=== PATIENT | male | born 1940 | race Caucasian/White ===

== ENCOUNTER 2017-03-03 17:54 | Inpatient (IN) ==
[2017-03-03 22:02] LABS: MANUAL DIFF NEEDED? NO
[2017-03-03 22:20] LABS: URINE CULTURE NEEDED? NO; URINE MICRO REVIEW NEEDED? NO; URINE SOURCE CLEAN CATCH
[2017-03-03 22:26] LABS: BILIRUBIN URINE NEGATIVE (NEGATIVE); BLOOD URINE SMALL (NEGATIVE); COLOR YELLOW; GLUCOSE URINE NEGATIVE (NEGATIVE); LEUKOCYTES URINE NEGATIVE (NEGATIVE); NITRITE URINE NEGATIVE (NEGATIVE); PROTEIN URINE 30 mg/dL (NEGATIVE); SP GRAVITY URINE 1.004; TURBIDITY URINE CLEAR (CLEAR); UROBILINOGEN URINE NORMAL (NORMAL)
[2017-03-03 22:27] LABS: UR EPITHELIAL CELLS <10 /HPF (<10); URINE BACTERIA NEGATIVE /HPF; URINE RBC <10 /HPF (<10); URINE WBC <10 /HPF (<10)
[2017-03-03 22:37] LABS: ALBUMIN 3.5 g/dL (3.5-5.0); CALCIUM 9.4 mg/dL (8.8-10.2); TOTAL BILIRUBIN 0.27 mg/dL (0.20-1.00); TOTAL PROTEIN 7.4 g/dL (6.3-8.3)
[2017-03-03 22:56] LABS: BASO% 0.4 % (0.0-0.8); EOS# 0.08 X1000 (0.0-0.7); EOS% 0.5 % (0.0-10.0); HEMATOCRIT 27.6 % (42.0-52.0); HEMOGLOBIN 9.2 g/dL (14.0-18.0); IMM GRAN# 0.21 X1000 (0.0-0.04); IMM GRAN% 1.4 % (0.0-0.5); LYMPH# 1.12 X1000 (1.2-3.4); LYMPH% 7.6 % (20.5-51.1); MCH 32.2 PG (27-31); MCHC 33.3 g/dL (33-37); MCV 96.5 FL (81-99); MONO# 1.65 X1000 (0.11-0.59); MONO% 11.2 % (1.7-9.3); MPV 11.1 FL (7.4-10.4); NEUT% 78.9 % (42.2-75.2); PLT 239 X1000 (130-400); RBC 2.86 XMIL (4.7-6.1)
--- NOTE | 2017-03-04 00:05 | Diag Imaging Result Document ---
PROCEDURE NAME: CHEST-2 VIEWS - 03/03/2017 PA AND LATERAL RADIOGRAPHS OF THE CHEST: COMPARISON: 09/01/2016. FINDINGS: A tracheostomy tube is in stable position. There is linear opacity at both lung bases that is very similar to the previous study and probably represents linear scarring and/or atelectasis. However, superimposed infiltrates at the lung bases cannot completely be excluded. There is evidence of prior granulomatous disease that is stable. Cardiac silhouette is unremarkable. IMPRESSION: Bibasilar atelectasis and/or scarring. Superimposed infectious infiltrate at the lung bases cannot completely be excluded, however. Followup chest radiograph is recommended.
--- NOTE | 2017-03-04 00:25 | PROVIDER DOCUMENTATION ---
This chart was entered by Riley Louie Scribe, acting as scribe for Alvin Plunkett MD. HPI-General Adult - General Chief Complaint: Fever Stated Complaint: LETHARGIC/BACK PAIN Time Seen by Provider: 03/03/17 19:53 Source: patient Allergies/Adverse Reactions: Patient Allergies Allergy/AdvReac Type Severity Reaction Status Date / Time No Known Allergies Allergy Verified 05/04/16 18:50 Home Medications: Home Medication List Medication Instructions Recorded Confirmed Last Taken Type Fludrocortisone [Florinef] 0.1 mg PO PRN PRN 07/05/13 03/03/17 05/04/16 07:00 History Tamsulosin HCl 0.4 mg PO DAILY 07/05/13 03/03/17 03/03/17 07:00 History Albuterol [Albuterol Neb] 2.5 mg INH Q4H PRN PRN 08/28/16 03/03/17 03/03/17 14: 00 History Amlodipine Besylate 2.5 mg PO DAILY 08/28/16 03/03/17 03/03/17 07:00 History Aspirin EC 81 mg PO DAILY 08/28/16 03/03/17 03/03/17 07:00 History Cholecalciferol (Vitamin D3) 5,000 unit PO DAILY 08/28/16 03/03/17 03/03/17 07: 00 History [Vitamin D3] Insulin Glargine,Hum.rec.anlog 300 unit SQ BID PRN 08/28/16 03/03/17 Unknown History [Toujeo Solostar] Levothyroxine [Synthroid] 75 microgm PO DAILY@07 #30 tablet 09/01/16 03/03/17 07:00 Rx Pantoprazole Sodium [Protonix] 40 mg PEG BID #60 tablet. 09/01/16 03/03/1703/15 07:00 Rx Sennosides/Docusate Sodium 1 each PEG BID #0 tablet 09/01/16 03/03/17 03/03/17 07:00 Rx [Pericolace] Carvedilol [Coreg] 6.25 mg PO 03/03/17 03/03/17 07:00 History Cefepime HCl/Dextrose, Iso-Osm 2 gm IV Q12HR 03/03/17 03/03/17 03/03/17 07:00 History [Cefepime 2 gm Injection] Escitalopram [Lexapro] 10 mg PO DAILY 03/03/17 03/03/17 03/03/17 07:00 History Pantoprazole Sodium [Protonix] 40 mg PO 03/03/17 03/03/17 07:00 History - History of Present Illness -Gen Adult Nature of Presenting Problems: Pt is a 77 yom who presents to ER with CC of generalized weakness and fever. Daughter reports that pt has been complaining of low back pain, generalized weakness, fever, and diarrhea that started last night. PT has hx of a tracheotomy and daughter and grand daughter reports that for the past week, pt' s sputum has become increasingly yellow and has a foul odor to it. Pt has been treated with IV Cephapine for the past 2 months and has 4 days left (total of ~ 10 weeks). Pt also complains of shortness of breath. Location of Pain/Injury: reports: generalized Pain Radiation: reports: no radiation Quality of Pain: reports: none Severity: reports: moderate Onset/Duration: reports: last night Timing: reports: still present Associated Symptoms: reports: back/neck pain, cough, diarrhea, fatigue, fever/ chills, shortness of breath, weakness, trouble walking. denies: anxiety, arm pain, chest pain, constipation, diaphoresis, dizziness, EENT symptoms, genitourinary problems, headaches, heartburn, joint pain, muscle aches, nausea, rash, seizure, pain with inspiration, syncope, vomiting Similar Symptoms Previously?: Yes Recently seen or treated by another doctor?: Yes Review of Systems - Adult - REVIEW OF SYSTEMS - ADULT Constitutional: reports: chills, fever, fatique. denies: night sweats, weight gain, weight loss Eyes: reports: no symptoms reported Ears, Nose, Mouth & Throat: reports: no symptoms reported Cardiovascular: reports: no symptoms reported Respiratory: reports: cough, excessive sputum production, shortness of breath. denies: chronic cough, dyspnea on exertion, hemoptysis, pleurisy, wheezing Gastrointestinal: reports: diarrhea. denies: abdominal pain, hematemesis, constipation, difficulty swallowing, frequent heartburn, nausea, poor appetite, rectal bleeding, vomiting Genitourinary: reports: no symptoms reported Musculoskeletal: reports: back pain, muscle weakness. denies: bone pain, frequent leg cramps, joint pain, joint swelling, muscle aches, neck pain Integumentary: reports: no symptoms reported Neurological: reports: no symptoms reported Psychiatric: reports: no symptoms reported Endocrine: reports: no symptoms reported Hematologic/Lymphatic: reports: no symptoms reported Allergic/Immunologic: reports: no symptoms reported All Other Systems: Reviewed and Negative Past History - Adult - PAST MEDICAL HISTORY-ADULT Review of Records: reports: Nursing Assessment Review, Medications Reviewed Cardiovascular: reports: HTN Gastrointestinal: reports: other (PEG tube) Other Conditions: reports: other cancer (tracheal cancer) - PRIOR SURGERIES/PROCEDURES Surgical/Procedure History: reports: other (PEG tube, tracheotomy ) - IMMUNIZATION STATUS Childhood Immunizations: See Nurse Assessment Flu Vaccine: See Nurse Assessment - FAMILY HISTORY Family History: reviewed, not pertinent Physical Exam-General - PHYSICAL EXAM-ADULT Initial Vital Signs Reviewed: Yes - CONSTITUTIONAL General Appearance: appears well, alert, mild distress, thin. negative: no apparent distress - EYES Eyes: PERRL/EOMI, pink conjunctivae. negative: photophobia, sclera injected, scleral icterus - HEAD, EARS, NOSE, MOUTH & THROAT HENMT: normocephalic/atraumatic, moist mucous membranes, normal ENT inspection, TMs normal, pharynx normal. negative: pharyngeal erythema, tonsillar exudate, TM abnormal - NECK Neck: non-tender, full range of motion, normal inspection, other (tracheotomy; soft tissue of neck hard from radiation tx). negative: supple, C-spine tenderness, limited range of motion, lymphadenopathy - RESPIRATORY Respiratory: chest non-tender, no pleuratic chest pain, no respiratory distress , no accessory muscle use, wheezing. negative: lungs clear, normal breath sounds - CARDIOVASCULAR Cardiovascular: normal peripheral pulses. negative: regular rate, rhythm, no murmur, bradycardia, tachycardia, irregularly irregular - GASTROINTESTINAL (ABDOMEN) Abdominal Exam: normal bowel sounds, non tender, soft, no organomegaly, no pulsatile mass. negative: abnormal bowel sounds, distended, guarding, rigid, rebound, tenderness - MUSCULOSKELETAL Back Exam: normal inspection, no CVA tenderness, no vertebral tenderness. negative: CVA tenderness, decreased range of motion, ecchymosis, muscle spasm, swelling, vertebral tenderness Extremity: normal range of motion, non-tender, normal gait, normal inspection, no pedal edema, no calf tenderness, normal capillary refill. negative: deformity, erythema, inflammation, swelling, tenderness - SKIN Integumentary: normal color, normal turgor, warm/dry. negative: abrasion(s), diaphoresis, ecchymosis, erythema, laceration(s), swelling, tenderness, warm - NEUROLOGIC Neurologic: brick offbearer II-XII nml as tested, grossly normal, no motor/sensory deficits . negative: facial droop, focal weakness, motor weakness, sensory deficit - PSYCHIATRIC Psych/Mental Status: normal thought content, normal thought process, oriented x 3, depressed affect. negative: normal mood/affect Progress - PLAN OF CARE/RESULTS Progress/Plan/Lab Results: Vital Signs - 8 hr 03/03/17 18:09 Pulse Rate 77 Respiratory Rate 18 Blood Pressure 164/58 O2 Sat by Pulse Oximetry 97 Result Diagrams: 03/03/17 21:25 03/03/17 21:25 - XRAY 1 XRAY: Bilateral XRAY Study: Chest Impression: See EMR Report Departure - Departure Time of Disposition Decision: 23:39 DIAGNOSIS: Fever, Endocarditis Disposition: ADMITTED INPATIENT 09 Certified Medical Emergency: Emergent Condition: Stable Referrals and Follow-Ups: Flash Ortega [Primary Care Provider] - - Critical Care Note This patient required my direct & personal management of CC.: No This chart was documented by the indicated scribe, (Riley Louie Scribe) and accurately reflects the services I performed and decisions made by me, Alvin Plunkett MD, as attested by the provider's signature.
[2017-03-04] MEDS: NS 1,000 ML IV SCH ×2 (02:02→17:15)
[2017-03-04 02:34] LABS: INR 0.98; PROTIME 10.3 Seconds (9.2-11.7); PTT 25.3 Seconds (22.0-36.0)
[2017-03-04 05:48] LABS: MANUAL DIFF NEEDED? NO
[2017-03-04 05:51] LABS: BASO% 0.5 % (0.0-0.8); EOS% 0.6 % (0.0-10.0); HEMATOCRIT 28.8 % (42.0-52.0); HEMOGLOBIN 9.8 g/dL (14.0-18.0); IMM GRAN# 0.22 X1000 (0.0-0.04); IMM GRAN% 1.4 % (0.0-0.5); LYMPH# 1.09 X1000 (1.2-3.4); LYMPH% 7.1 % (20.5-51.1); MONO# 2.32 X1000 (0.11-0.59); MPV 10.6 FL (7.4-10.4); NEUT% 75.4 % (42.2-75.2); PLT 238 X1000 (130-400); RBC 2.97 XMIL (4.7-6.1)
[2017-03-04 06:08] LABS: HEMOGLOBIN A1C 5.3 % (4.8-6.0)
[2017-03-04 06:14] LABS: CALCIUM 9.1 mg/dL (8.8-10.2); MAGNESIUM 1.9 mg/dL (1.5-2.7); POTASSIUM 4.7 mmol/L (3.5-5.1)
[2017-03-04] MEDS: HUMALOG SUBQ SCH ×4 (06:23→22:22)
[2017-03-04] MEDS: SYNTHROID PEG SCH (06:23)
[2017-03-04] MEDS: MERREM 1 GM in NS 50 ML IV SCH ×3 (06:28→22:23)
[2017-03-04] MEDS: CUBICIN (FOR INPATIENT USE) 500 MG in NS 100 ML IV SCH (07:50)
--- NOTE | 2017-03-04 08:02 | HISTORY AND PHYSICAL ---
TIME: 0200 hours. PRIMARY CARE PROVIDER: Mani Ortega MD COCOA MILL OPERATOR: Nayeli Ortega MD MUD MIXER OPERATOR: Charles Hoskins MD with [facility]. ONCOLOGIST: A physician in [place], per the patient. CHIEF COMPLAINT: Fever. HISTORY OF PRESENT ILLNESS: Mr. Matt Guerrero is a 77-year-old, male , with a past medical history of recurrent lung cancer and throat cancer. He currently has a tracheostomy. He also has a recent history of being treated for pneumonia. The patient was recently admitted at [facility] and was discharged to [facility] for rehab. The patient reports that he has just returned home approximately 2-3 weeks ago and is still receiving daily cefepime IV infusions for his pneumonia, stating that he has 4 more days of this remaining. He states that he is followed by Dr. Bland for this as well. The patient states for the past 3- 4 days that he has had fever, increased weakness, mid upper back pain, worsening shortness of breath and productive cough with yellow sputum. The patient also reports for approximately 1-2 months now, that he has had diarrhea. He states now that his diarrhea is very watery in consistency, though he denies any hematochezia or melena. He also complains of some dizziness as well. He also reports that he has been feeling very dizzy and weak and has actually fallen due to when he stands up from a sitting position, he becomes very lightheaded. We did do orthostatics in the ER, and the patient did tilt slightly with his blood pressure from sitting, going from 140/79 to 119/56, though his heart rate remained stable. He denies any chest pain, abdominal pain, nausea, vomiting, or dysuria. The patient does report some urinary frequency. He denies any pain, numbness or tingling in extremities. Patient denied any previous known history of pulmonary embolism or DVT. He states that during his last admission at [facility], as well as at rehab at [facility], they did have him on Coumadin. He took his last dose of this approximately 1 week ago but the patient states that he is unsure of why he was placed on this medication. He denied any history of irregular heartbeat, such as atrial fibrillation or atrial flutter. Upon evaluation in the ER, patient was found to have leukocytosis. X-ray did show bibasilar atelectasis or scarring as well as superimposed infectious infiltrate at the lung bases, which could not be completely excluded. Due to these findings, we did order a chest abdomen and pelvis CT, which showed worsening right and new left lung multifocal ground-glass opacities. Radiologist noted this could be a source of atypical infection. There was also some increased mediastinal lymph nodes, which could be reactive. He was also found to be slightly hyponatremic with a sodium of 124. At this time, we will admit the patient for further treatment evaluation of his pneumonia and hyponatremia. REVIEW OF SYSTEMS: A 12-point review of systems was conducted with the patient and all were negative except for pertinent positives mentioned above in the HPI. PAST MEDICAL HISTORY: 1. COPD. 2. Diabetes mellitus type 2. 3. CVA. 4. Hyperlipidemia. 5. Hypertension. 6. Throat cancer. 7. Recurrent lung cancer. 8. Chronic kidney disease, stage 3A. 9. History of gastrointestinal bleeding. 10. Coronary artery disease with cardiac stent placement x1. 11. AAA repair. 12. Abdominal hernias. PAST SURGICAL HISTORY: 1. Cholecystectomy. 2. PEG tube placement. 3. Tracheostomy. 4. AAA repair. 5. Neck surgery. SOCIAL HISTORY: The patient is a former smoker. He denies any past or present alcohol or illicit drug use. FAMILY HISTORY: Positive for diabetes mellitus, and dementia. ALLERGIES: Patient reports no known allergies. HOME MEDICATIONS: 1. Albuterol nebulizer treatments 2.5 mg inhaled q.4 hours p.r.n. for shortness of breath. 2. Amlodipine 2.5 mg p.o. daily. 3. Aspirin 81 mg p.o. daily. 4. Coreg 6.25 mg p.o. daily. 5. Cefepime 2 g IV q.12 hours. 6. Vitamin D3 5000 units p.o. daily. 7. Lexapro 10 mg p.o. daily. 8. Florinef 0.1 mg p.o. p.r.n. for decreased blood pressure. 9. Toujeo SoloSTAR per the patient's sliding scale at home. 10. Levothyroxine 75 mcg p.o. daily. 11. Protonix 40 mg per PEG tube twice a day. 12. Colace 1 per PEG tube b.i.d. 13. Flomax 0.4 mg per PEG tube daily. DIAGNOSTIC DATA: Laboratory results: White blood cell count 14.79, hemoglobin 9.2, hematocrit 27.6, platelet count is 239,000. PT 10.3, INR 0.98. PTT is 25.3. Sodium 124, potassium 5, chloride 86, bicarb 26, BUN 44, creatinine 1.5, estimated GFR is 45, glucose 160 , serum osmolalities 275, calcium 9.4. Liver function tests are within normal limits. CK 108, troponin 0.019. Total protein 7.4, albumin 3.5. Urinalysis was obtained via clean catch , was positive for protein and small amount of blood. It was negative for glucose, ketones, nitrites, leukocytes or bacteria. Urine sodium was 23. EKGs showed normal sinus rhythm with a rate of 83, and a QTc of 418. CT of the chest, abdomen and pelvis without contrast showed worsened right and new left lung multifocal ground-glass opacities. Radiologist did note this could be a source for atypical infection. He did note interval increase in mediastinal lymph nodes which may be reactive. Also noted was moderate right hemidiaphragm elevation. Punctate calcified granulomas within the spleen. An exophytic large left renal cyst. Abdominal aortic aneurysm. Bifurcated limb endograft repair. Percutaneous gastrostomy tube was appropriately positioned. Also noted was a superior right urinary bladder diverticulum. PHYSICAL EXAMINATION: VITAL SIGNS: Temperature 98.1 degrees, pulse rate 87, respiratory rate 22, blood pressure 159/82. Oxygen saturation is 93% per trach collar at 4 L. GENERAL: Mr. Guerrero is a pleasant 77-year-old, male, who was resting in the ER stretcher. He was in no acute distress. He was awake, alert and able to answer all questions appropriately. Due to the patient having tracheostomy, his speech is difficult to understand, though he is able to answer questions and make any commands for his needs via writing with paper and pen. HEENT: Head is atraumatic, normocephalic. Pupils are equal, round, reactive to light and were 3 mm bilaterally and brisk. Sclerae white. No lesions noted. Sub-conjunctivae were slightly pale. Oral mucosa is moist. Oropharynx is clear. NECK: Supple. Trachea is midline. No JVD noted. There were slight carotid bruits noted per auscultation bilaterally, though the patient does have a probable 3/6 systolic murmur noted. This could be related to this. CARDIOVASCULAR: Patient has normal S1, S2. As previously mentioned, he does have a 3/6 systolic murmur noted. No other rubs or gallops present. Heart rate is regular and he has a regular rhythm as well. PULMONARY: Patient has symmetrical chest expansion bilaterally. Lung sounds in bilateral full hadley were coarse upon auscultation. The patient does become dyspneic as well as hypoxic upon exertion, even just walking to the bathroom and back, though upon rest, he does maintain oxygen saturations well, anywhere between 93 and 94 on trach collar at 4 L. ABDOMEN: Soft, nontender, nondistended. Bowel sounds were present in all 4 quadrants. Patient does have a PEG tube present. His his stoma does appear to be in good condition. No erythema or sores noted. EXTREMITIES: No cyanosis, clubbing, or edema noted. Pulse, motor and sensory were intact in all extremities. Pedal pulses were 3+ bilaterally. INTEGUMENTARY: Patient's skin is pink, warm, dry and intact. No lesions or sores noted. NEUROLOGICAL: Patient is alert, oriented to person, place, time, and situation. Cranial nerves 2- 12 are grossly intact. ASSESSMENT AND PLAN: 1. Bilateral multifocal pneumonia. For this, blood cultures as well as sputum culture have been obtained. We have placed the patient, at this time, on IV meropenem 1 g IV q.8 hours as well as daptomycin 500 mg IV q.24 hours. We have placed a consult with Dr. Bland with Infectious Disease and Dr. Riley with Pulmonology will await their evaluation and further recommendations. 2. Leukocytosis. This is likely secondary to the patient's pneumonia. We will continue to rule out any other sources of infection as well. 3. Chronic obstructive pulmonary disease. We have placed a Pulmonology consult. We will continue with DuoNeb treatments scheduled 4 times a day and will continue to monitor his respiratory status closely. 4. History of recurrent lung cancer and throat cancer. The patient currently has a tracheostomy secondary to this. We will continue with aggressive pulmonary toilet as well as we have ordered for the patient to have tracheostomy care per Respiratory and will continue to follow. 5. Hyponatremia. We suspect that this is hypotonic, hypovolemic, hyponatremia. Looking back, the patient has not previously had any issues with hyponatremia. He did report that he has had diarrhea for approximately 1-1/2 to 2 months. This could be secondary to this. We will continue with gentle fluid resuscitation with normal saline at 100 mL/h and we have placed stool studies as well for further evaluation of his diarrhea and we will continue to monitor him closely. 6. Diarrhea. Will continue with treatment as mentioned above with stool studies and continue to follow. 7. Chronic kidney disease stage 3A. At this time, this appears to be stable based on his previous creatinine and glomerular filtration rate. We will closely monitor his renal function, avoid nephrotoxic medications and renally dose medications as necessary. 8. Anemia. The patient has a history of this as well. This appears to be stable also. We will continue to monitor this also. 9. Diabetes mellitus type 2. We have placed the patient on a Lispro sliding scale moderate dose and have ordered a hemoglobin A1c and we will continue to follow. 10. Hypertension. We will continue the patient's Norvasc and continue to monitor. 11. Hypothyroidism. We will continue the patient's levothyroxine and have ordered a TSH and will continue to follow. The patient will be placed on the medical floor with telemetry. He will have vital signs q.4 hours. We will do strict intake and output. We will do q.4 hours neuro checks. We have placed a dietitian consult and have also continued the patient's regular tube feedings with Pulmocare 240 mL every 4 hours as well as he takes 16 ounces of water with every feeding as well every 4 hours. We have also placed an order for an echocardiogram in the morning for further evaluation of his cardiac murmur. Pending diagnostic studies at this time are blood cultures, urine culture, sputum culture, stool studies, repeat troponin, and echocardiogram. Further orders and recommendations pending hospital course, diagnostic studies a physician evaluation. Dictated by SB Herrera for Kahlil Chavez MD cc: Kahlil Chavez MD [facility]
[2017-03-04] MEDS: DUONEB (A & A) INH SCH ×3 (08:29→20:08)
[2017-03-04] MEDS ORDERED: PROTONIX SCH (09:00)
--- NOTE | 2017-03-04 11:37 | Diag Imaging Result Document ---
PROCEDURE NAME: THORAX/ABDOMEN/PELVIS W/O CONT - 03/04/2017 CT CHEST, ABDOMEN, AND PELVIS WITHOUT CONTRAST: COMPARISON: CT abdomen and pelvis dated 08/27/[address] chest dated 2015. FINDINGS: CHEST: There are patchy ground-glass opacities bilaterally, that have worsened on the right and are new on the left. There is stable bibasilar pulmonary fibrosis. There is a 7.7 mm noncalcified nodule in the right lower lobe on image 64 of series 3 that is not identified on the previous study. This certainly may represent an inflammatory nodule. Continued surveillance based on Elisha Society Criteria is recommended. There is a calcified granuloma at the right lung apex. There are patchy calcified pleural plaques seen bilaterally. There is no pleural fluid collection and no pneumothorax. A tracheostomy tube is in place. There are a few calcified mediastinal and hilar lymph nodes indicating prior granulomatous disease. There are several mediastinal lymph nodes that have increased in size during the interval. They are nonspecific but are probably reactive. For reference, there is a lymph node in the aortopulmonary window on image 46 of series 2 that measures 1.4 x 1.1 cm axially (0.7 x 0.5 cm previously). There is stable cardiomegaly. There is stable aortic and coronary artery atherosclerotic calcification. ABDOMEN/PELVIS: There has been a previous cholecystectomy. A gastrostomy tube is in place. There are calcified granulomata in the spleen. There is a left renal cyst. No renal stones or hydronephrosis is appreciated. There is uncomplicated moderate sigmoid colonic diverticulosis. There is no bowel obstruction. There is elevation of the right hemidiaphragm that is stable. There is a small right anterior urinary bladder diverticulum. There is a stable stent graft repaired abdominal aortic aneurysm. The remainder of the solid viscera of the abdomen and pelvis and the remainder of the GI tract is essentially unremarkable. IMPRESSION: 1. Worsened ground-glass opacities in the right lung and new ground-glass opacities on the left. An infectious process cannot be excluded. 2. New 7.7 mm noncalcified nodule in the right lower lobe that certainly may be inflammatory, but continued surveillance is recommended. 3. Worsening mediastinal and hilar lymphadenopathy that is nonspecific but is probably reactive. 4. Uncomplicated diverticulosis coli. 5. No definite acute pathology involving the abdomen or pelvis. 6. Other incidental/nonacute findings detailed above. [facility]
[2017-03-04] MEDS: LEXAPRO PEG SCH (12:30)
[2017-03-04] MEDS: COREG PEG SCH (12:30)
[2017-03-04] MEDS: FLOMAX PEG SCH (12:30)
[2017-03-04] MEDS: VITAMIN D SCH (12:30)
[2017-03-04] MEDS: ASPIRIN SCH (12:30)
[2017-03-04] MEDS: NORVASC PEG SCH (12:57)
--- NOTE | 2017-03-04 14:57 | CONSULTATION ---
DATE OF CONSULTATION: 03/04/2017 DIAGNOSES: 1. Chronic obstructive pulmonary disease. 2. Bilateral pulmonary infiltrates consistent with aspiration or bronchopneumonia. 3. Bilateral pulmonary fibrotic changes consistent with idiopathic pulmonary fibrosis. 4. History of lung cancer with radiation. 5. History of ear, nose, throat carcinoma. 6. Status post tracheostomy secondary to above. 7. Diabetes mellitus. 8. Percutaneous endoscopic gastrostomy tube secondary to above. RECOMMENDATIONS: I agree with the broad-spectrum antibiotics as well as the inhaled beta agonist and supplemental oxygen. Will give him humidity in his trach collar and follow closely along with you. HISTORY: This very pleasant 77-year-old white male has a known history of ENT carcinoma as well as COPD. He has a history of lung cancer and he is status post tracheostomy. His CAT scan showed fibrotic changes consistent with IPF and subsequently he was recently in the hospital with more broad-spectrum antibiotics. He now returns with increasing wheezing, cough, and shortness of breath. He does admit to some aspiration-type symptoms as well as cough. Formerly, he was a smoker of approximately a 60 pack-year history. PAST MEDICAL HISTORY: Positive for COPD as well as previous CVA. He has a history of diabetes mellitus, type 2. He has a history of throat cancer, status post radiation, chronic renal insufficiency, as well as a previous history of peripheral vascular disease, aortic repair, and history of hyperlipidemia. REVIEW OF SYSTEMS: Except for the features mentioned above, negative for weight loss, night sweats, weakness, or anorexia. No ENT symptoms of odynophagia, dysphagia, epistaxis, painful swallowing. No eye symptoms of blindness, blurring, or diplopia. No other cardiac or pulmonary symptoms other than mentioned. No nausea, vomiting, constipation, or diarrhea. No hematuria, polyuria, nocturia, or dysuria. No joint or muscle pain, stiffness, or swelling. No skin rashes, itching, or bruises. No seizures, loss of consciousness, or paralysis. Except for the features mentioned above, all other symptoms on the review of systems are negative. PAST FAMILY MEDICAL HISTORY: Positive for ischemic heart disease in his father, diabetes in his mother. SOCIAL HISTORY: He has a supportive family. Does have a tracheostomy at home. Does not currently drink or smoke. PHYSICAL EXAMINATION: Vital Signs: Blood pressure 184/77 with a pulse of 96, respirations 18, temperature 98.4 degrees. HEENT: Reveals no thyromegaly or adenopathy. Pupils are equal and reactive. Extraocular muscles are intact. Neck: Supple. No bruits. No thyromegaly. No JVD. Chest: Reveals bilaterally equal breath sounds with some prolongation of the expiratory phase, forced expiratory wheezes. There are crackles and rhonchi. There is a tracheostomy tube in place. It has some purulent secretions inside; however, appears to be intact. Cardiac: Reveals a regular rhythm without an appreciable murmur. Abdomen: Soft. Skin: Warm and dry. There is a PEG tube placed in his abdomen. Neurological: He is awake, conversing, and moves all 4. DIAGNOSTIC STUDIES: The chest CT and x-ray show bilateral infiltrates as well as honeycomb scarring peripherally. He has a sodium of 127, potassium 4.7, chloride 87, CO2 of 28, BUN 42, creatinine 1.4, glucose 110. White count is 15,200 with a hemoglobin of 9.8, hematocrit of 28.8, and platelets of 238,000.
--- NOTE | 2017-03-04 16:59 | ECHO REPORT ---
ORDER DATE: 03/04/2017 ECHOCARDIOGRAPHIC MEASUREMENTS: 1. Interventricular septum 1.4 Left ventricular posterior wall 1.4. Diastolic diameter 4.4. Left atrium 4.5. Aorta 4. 2. Aortic valve leaflets were sclerosed, trileaflet. Mitral valve was normal. There is mild mitral annular calcification. There is left atrial enlargement. Tricuspid valve was normal. 3. Normal left ventricular cavity size. Estimated ejection fraction of 55% to 60% however endocardium not well visualized in all views. 4. There is mild mitral regurgitation. Peak velocity across the aortic valve was 2.9 m/sec with a mean gradient of 19 mmHg. There is aortic sclerosis versus mild aortic stenosis, there is mild tricuspid regurgitation. Peak velocity across the tricuspid valve was 2.6 m/sec. Pulmonary artery systolic pressure of 35 mmHg. Technically suboptimal study. 5. There is no pericardial effusion or obvious intracardiac mass or thrombus. cc: Epi Lomeli MD
[2017-03-05] MEDS: DUONEB (A & A) INH SCH ×4 (02:52→21:38)
[2017-03-05] MEDS: NS 1,000 ML IV SCH ×4 (02:52→16:25)
[2017-03-05] MEDS: SYNTHROID PEG SCH ×2 (05:53→08:17)
[2017-03-05] MEDS: MERREM 1 GM in NS 50 ML IV SCH ×4 (05:53→23:08)
[2017-03-05 06:48] LABS: MANUAL DIFF NEEDED? NO
[2017-03-05] MEDS: PRILOSEC ORAL SUSPENSION SCH ×3 (06:48→20:04)
[2017-03-05 06:55] LABS: BASO% 0.5 % (0.0-0.8); EOS# 0.19 X1000 (0.0-0.7); EOS% 1.9 % (0.0-10.0); HEMATOCRIT 26.4 % (42.0-52.0); HEMOGLOBIN 8.5 g/dL (14.0-18.0); IMM GRAN# 0.16 X1000 (0.0-0.04); IMM GRAN% 1.6 % (0.0-0.5); LYMPH# 0.65 X1000 (1.2-3.4); LYMPH% 6.6 % (20.5-51.1); MCH 31.7 PG (27-31); MCHC 32.2 g/dL (33-37); MCV 98.5 FL (81-99); MONO# 1.77 X1000 (0.11-0.59); MONO% 17.9 % (1.7-9.3); MPV 10.7 FL (7.4-10.4); NEUT% 71.5 % (42.2-75.2); PLT 227 X1000 (130-400); RBC 2.68 XMIL (4.7-6.1)
[2017-03-05 07:18] LABS: CALCIUM 8.7 mg/dL (8.8-10.2); POTASSIUM 4.8 mmol/L (3.5-5.1)
[2017-03-05] MEDS: HUMALOG SUBQ SCH ×4 (08:16→23:04)
--- NOTE | 2017-03-05 09:13 | Diag Imaging Result Document ---
PROCEDURE NAME: CHEST-1 VIEW - 03/05/2017 SINGLE FRONTAL RADIOGRAPH OF THE CHEST: COMPARISON: 03/03/2017. FINDINGS: Tracheostomy tube is in stable position. Inspiration is suboptimal and lung volumes are lower than the previous study. There is increasing opacity throughout the left lung and at the right mid and lower lung zone suggesting developing/worsening infiltrate. There is also probably a component of atelectasis at the lung bases. Cardiac silhouette is stable. IMPRESSION: Lower lung volumes and worsening infiltrates bilaterally.
[2017-03-05] MEDS: CUBICIN (FOR INPATIENT USE) 500 MG in NS 100 ML IV SCH (10:35)
[2017-03-05] MEDS: LEXAPRO PEG SCH (10:37)
[2017-03-05] MEDS: COREG PEG SCH (10:37)
[2017-03-05] MEDS: FLOMAX PEG SCH (10:37)
[2017-03-05] MEDS: ASPIRIN SCH (10:37)
[2017-03-05] MEDS: NORVASC PEG SCH (10:37)
[2017-03-05] MEDS: VITAMIN D SCH (10:39)
[2017-03-05] MEDS ORDERED: VANCOMYCIN IV PER PHARMACY MISC SCH (14:00)
--- NOTE | 2017-03-05 16:43 | PROGRESS NOTE ---
DATE: 03/05/2017 SUBJECTIVE: This patient states that he is feeling a little bit better. He still is still having cough and phlegm, I talked to the patient and basically this patient is bed-bound, Pulmonary Department is following this patient and Infectious Disease Department will be consulted tomorrow. OBJECTIVE: Vital Signs: Temperature 98.4 degrees, pulse 84, respiratory rate 18, blood pressure 155/69, O2 saturation 99 on 10% oxygen flow through his trach collar. HEENT: Head normocephalic. No trauma. PERRLA. Neck: Supple, trachea is midline. No JVD. Tracheostomy noted. Chest: Bilateral coarse sounds, generalized, with rhonchi bilaterally. Abdomen: Soft, nontender, nondistended. No hepatosplenomegaly. This patient has a PEG tube that appears to be in a good condition, no erythema. Extremities: No edema. No cyanosis. No clubbing. Neurological: The patient is alert. He is oriented x3. No focal deficits. LABORATORY: WBC 9.8, hemoglobin 8.5, hematocrit 26.4, platelets 227,000. Sodium 130, potassium 4.8, chloride 93, bicarbonate 28, BUN 37, creatinine 1.2, glucose 162, calcium 8.7. ASSESSMENT AND PLAN: 1. Bilateral multifocal pneumonia. Cultures so far have been negative. We will continue with meropenem and vancomycin. Pulmonary Department is following this patient as well and we have placed a consult for Dr. Bland from Infectious Disease for tomorrow. 2. Leukocytosis, likely secondary to this patient's pneumonia. The white blood cell count today is normal. 3. Chronic obstructive pulmonary disease. We will continue with breathing treatment and pulmonary toilet. Pulmonary Department is following this patient. 4. History of recurrent lung cancer and throat cancer. This patient has a tracheostomy secondary to this and also a PEG tube. We will continue to monitor. 5. Hyponatremia. This is getting better. Continue with the same management. 6. Diarrhea. This is getting better. Continue with the same management. 7. Chronic kidney disease stage III. We will monitor. The glomerular filtration rate today 59 and the creatinine is 1.2 point. 8. Type 2 diabetes. Continue with sliding scale. His hemoglobin A1c is 5.3. 9. Hypothyroidism. Continue with levothyroxine. 10. Bilateral pulmonary fibrotic changes consistent with idiopathic pulmonary fibrosis. Aware. PLAN: I will continue with broad spectrum antibiotics as well as breathing treatment, Pulmonary Department is following this patient and we have placed a consult for Infectious Disease Department. Overall, this patient feels a little bit better, but we will continue to monitor. cc: Farooq Lou MD
[2017-03-05] MEDS: LOVENOX SUBQ SCH (16:46)
[2017-03-05] MEDS ORDERED: VANCOMYCIN 1,500 MG in NS 250 ML IV ONE (17:00)
--- NOTE | 2017-03-05 17:54 | CONSULTATION ---
DATE OF CONSULTATION: 03/05/2017 CONCLUSION: The patient is admitted the hospital with bilateral pneumonia. The patient had recently been on prolonged course of Cefepime, so the organism would probably be resistant to cefepime. RECOMMENDATIONS: I agree with treating the patient with meropenem. I have discontinued daptomycin because it is ineffective in treating pulmonary infections. Instead, I have placed the patient on vancomycin. DISCUSSION: The patient has a tracheostomy and was unable to give me a history. The history was taken mainly from a review of the data in the computer. The patient states that in the past 3-4 days, he had fever, increased weakness, mid-upper back pain, worsening shortness of breath and a productive cough with yellow sputum. His laboratory studies show a CBC with a white count of 9880, hemoglobin 8.8, and platelet count 227,000. Creatinine is 1.2. GFR is 59. Blood and urine cultures are pending. Sputum culture has been ordered, but has not been collected yet. CT scan and chest x-ray show bilateral infiltrates. I was unable to obtain a review of systems from the patient, but according to the data in the computer, the patient has been having diarrhea in the past 1-2 months. He is not complaining of any dysuria. He has orthostatic dizziness and weakness. He was not having any chest pain, abdominal pain, nausea or vomiting. He also denied having paresthesias in his extremities. The patient when he went home was on intravenous cefepime. PREVIOUS HOSPITALIZATIONS AND OPERATIONS: He has had a cholecystectomy, placement of a PEG tube, tracheostomy, abdominal aortic aneurysm repair and neck surgery. Patient has also had placement of a stent surgery for abdominal hernias. MEDICAL DISEASES: Positive for COPD, diabetes mellitus, stroke, hyperlipidemia, hypertension, throat cancer, chronic kidney disease, GI bleeding, coronary artery disease with stent placement, aortic aneurysm and hernias. The patient denied having lung cancer. INFECTIOUS DISEASE HISTORY: Positive for pneumonia, negative for UTI. FAMILY HISTORY: Positive for diabetes mellitus and dementia. SOCIAL HISTORY: The patient is disabled. He previously smoked cigarettes. He denies alcohol consumption or any illegal drug use. ALLERGIES: The patient has no known drug allergies. HOME MEDICATIONS: Coreg, tamsulosin, Savana-Colace, Protonix, Synthroid, insulin, Florinef, cholecalciferol, aspirin, amlodipine, albuterol, Lexapro, and the patient was receiving cefepime intravenously. PHYSICAL EXAMINATION: Vital Signs: Temperature is 98.4 degrees, pulse 84, respirations 18, blood pressure 155/69. Patient's weight is listed as 165 pounds. General: This is a chronically ill appearing, elderly male. He is in no acute distress. Head, eyes, ears, nose, and throat: No drainage was noted from the nose or ears. He can hear my spoken words and see near objects. Neck: Tracheostomy is in place. Thorax: Increased AP diameter of the chest. Lungs: There were bilateral rhonchi, but no wheezes. Cardiovascular: Heart rate was regular with a systolic murmur. Abdomen: Soft and nontender. G-tube is in place. Neurologic: Patient is awake. He can move his extremities. There is no tremor. His sensation was intact to touch. I was unable to test all his memory. There was no tremor. Integument: No rash noted. Thank you for the consult. cc: Hima Bland MD
[2017-03-06] MEDS: DUONEB (A & A) INH SCH ×4 (03:38→21:00)
[2017-03-06] MEDS: MERREM 1 GM in NS 50 ML IV SCH ×3 (04:19→22:18)
[2017-03-06] MEDS: NS 1,000 ML IV SCH ×2 (04:21→14:13)
[2017-03-06 06:10] LABS: MANUAL DIFF NEEDED? NO
--- NOTE | 2017-03-06 06:11 | EKG Report ---
Test Performed on : 03/06/2017 06:06:22 AM Test Reason : Syncopal Episode Blood Pressure : / mmHG Vent. Rate : 101 BPM Atrial Rate : 101 BPM P-R Int : 178 ms QRS Dur : 076 ms QT Int : 322 ms P-R-T Axes : 040 -06 035 degrees QTc Int : 417 ms Sinus tachycardia. with premature atrial complexes. Possible Anterior infarct , age undetermined Abnormal ECG When compared with ECG of 04-MAR-2017 02:22, premature atrial complexes. are now present Confirmed by Rubia WILLINGHAM, Sherwin Clark ([id number]) on 03/06/2017 11:25:01 AM
--- NOTE | 2017-03-06 06:12 | EKG Report ---
Test Performed on : 03/04/2017 02:22:38 AM Test Reason : SOB Blood Pressure : / mmHG Vent. Rate : 083 BPM Atrial Rate : 083 BPM P-R Int : 186 ms QRS Dur : 080 ms QT Int : 356 ms P-R-T Axes : 042 -06 044 degrees QTc Int : 418 ms Normal sinus rhythm. Normal ECG When compared with ECG of 28-AUG-2016 18:22, premature ventricular complexes. are no longer present premature atrial complexes. are no longer present Unconfirmed Result
[2017-03-06 06:43] LABS: BASO% 0.4 % (0.0-0.8); EOS# 0.14 X1000 (0.0-0.7); EOS% 1.2 % (0.0-10.0); HEMATOCRIT 25.1 % (42.0-52.0); IMM GRAN# 0.16 X1000 (0.0-0.04); IMM GRAN% 1.3 % (0.0-0.5); LYMPH# 1.03 X1000 (1.2-3.4); LYMPH% 8.6 % (20.5-51.1); MCH 31.6 PG (27-31); MCHC 31.9 g/dL (33-37); MCV 99.2 FL (81-99); MONO# 1.56 X1000 (0.11-0.59); MPV 10.6 FL (7.4-10.4); NEUT% 75.5 % (42.2-75.2); PLT 232 X1000 (130-400); RBC 2.53 XMIL (4.7-6.1)
[2017-03-06] MEDS: HUMALOG SUBQ SCH ×4 (06:50→21:57)
[2017-03-06] MEDS: SYNTHROID PEG SCH (06:50)
[2017-03-06 06:51] LABS: CALCIUM 8.3 mg/dL (8.8-10.2); POTASSIUM 4.9 mmol/L (3.5-5.1)
[2017-03-06 07:42] LABS: MAGNESIUM 1.6 mg/dL (1.5-2.7)
--- NOTE | 2017-03-06 09:41 | Diag Imaging Result Document ---
PROCEDURE NAME: CHEST-1 VIEW - 03/06/2017 PORTABLE CHEST X-RAY, 03/06/2017: COMPARISON: 03/05/2017. FINDINGS: Stable tracheostomy tube. Stable hazy bilateral alveolar infiltrates. Stable mild cardiomegaly. IMPRESSION: No change from prior.
[2017-03-06] MEDS: ASPIRIN SCH (09:44)
[2017-03-06] MEDS: VITAMIN D SCH (09:44)
[2017-03-06] MEDS: COREG PEG SCH (09:44)
[2017-03-06] MEDS: NORVASC PEG SCH (09:44)
[2017-03-06] MEDS: FLOMAX PEG SCH (09:44)
[2017-03-06] MEDS: LEXAPRO PEG SCH (09:44)
[2017-03-06] MEDS: PRILOSEC ORAL SUSPENSION SCH ×2 (09:45→22:18)
[2017-03-06] MEDS: LOVENOX SUBQ SCH (14:10)
[2017-03-06] MEDS: VANCOMYCIN 1 GM/NS 1 GM/250 ML IVPB IV SCH (16:34)
--- NOTE | 2017-03-06 16:39 | PROGRESS NOTE ---
DATE: 03/06/2017 PRESENT ILLNESS: The patient is readmitted to the hospital with a bilateral pneumonia. MEDICATIONS: The patient is receiving a combination of meropenem and vancomycin. PHYSICAL EXAMINATION: Vital Signs: Temperature is 98.3 degrees, pulse 85, respirations 14, blood pressure 151/65. Generally: This is an ill-appearing elderly male. Today he seems to be having hematemesis coming through his tracheostomy. Cardiovascular: Heart rate is regular. Abdomen: Soft and nontender. A G-tube is in place. Neurologic: The patient is sleeping now. LABORATORY AND X-RAY: CBC for today shows a white count of 11,980, hemoglobin 8, platelet count 232,000. Creatinine 1.2, GFR is 59. CPK is 53. Sputum is growing normal vania. Blood and urine cultures are negative. Chest x-ray shows bilateral infiltrates. ASSESSMENT AND PLAN: 1. The patient has pneumonia. The plan will be to continue with meropenem and vancomycin. 2. Comorbidities include chronic obstructive pulmonary disease, diabetes mellitus, throat cancer, chronic kidney disease. cc: Hima Bland MD
--- NOTE | 2017-03-06 18:53 | PROGRESS NOTE ---
DATE: 03/06/2017 SUBJECTIVE: This patient states that he is feeling about the same. He is still having cough and phlegm, and today again noticed some blood in his tubes coming out from his tracheostomy. As per the nurse, this patient has been moving and manipulating his tracheostomy and sometimes he also removed the oxygen from his tracheostomy and the oxygen saturation has been dropping. He has been doing this on and off. Pulmonary Department is following this patient. OBJECTIVE: Vital Signs: Temperature 98.3, pulse 88, respiratory rate 18, blood pressure 149/68, oxygen saturation 92 on a tracheostomy collar, 10% L of oxygen. HEENT: Head normocephalic. No trauma. PERRLA. Neck: Supple. No JVD. He has a tracheostomy noted. There is some blood coming out from his tracheostomy tube. Chest: Generalized coarse breath sounds with rhonchi bilaterally. Abdomen: Soft, nontender, nondistended. No hepatosplenomegaly. Extremities: No edema, no cyanosis. Neurological: The patient is alert and oriented x3. No focal deficits. LABORATORY: WBC 11.9, hemoglobin 8, hematocrit 25.1, platelet 232,000. Sodium 130, potassium 4.9, chloride 95, bicarbonate 27, BUN 34, creatinine 1.2, glucose 197, calcium 8.3. ASSESSMENT AND PLAN: 1. Bilateral multifocal pneumonia. Cultures have been negative so far. We will continue with meropenem and vancomycin. Pulmonary Department is following this patient. Dr. Bland from Infectious Disease has been consulted. 2. Leukocytosis likely secondary to patient's pneumonia. White blood cells today is slightly elevated. 3. Chronic obstructive pulmonary disease. We will continue with breathing treatments and pulmonary toilet. Pulmonary Department is following this patient. 4. History of recurrent lung cancer and throat cancer. This patient has a tracheostomy secondary to this and also a PEG tube. We will continue to monitor. 5. Hyponatremia. Sodium is around 130 today. We will continue to monitor. 6. Diarrhea. This is getting better. Continue with the same management. 7. Chronic kidney disease stage 3. We will monitor. 8. Type 2 diabetes. Continue with sliding scale. Hemoglobin A1c is 5.3. 9. Hypothyroidism. Continue with levothyroxine. 10. Bilateral pulmonary fibrotic changes consistent with idiopathic pulmonary fibrosis. Aware. cc: Farooq Lou MD
[2017-03-06] MEDS ORDERED: NORCO-5 PO ONE (20:24)
[2017-03-06 23:05] LABS: URINE CULTURE NEEDED? NO; URINE SOURCE CATH
[2017-03-06 23:08] LABS: BILIRUBIN URINE NEGATIVE (NEGATIVE); BLOOD URINE MODERATE (NEGATIVE); COLOR YELLOW; GLUCOSE URINE NEGATIVE (NEGATIVE); LEUKOCYTES URINE NEGATIVE (NEGATIVE); NITRITE URINE NEGATIVE (NEGATIVE); PH URINE 5.5; PROTEIN URINE 100 mg/dL (NEGATIVE); SP GRAVITY URINE 1.016; TURBIDITY URINE TURBID (CLEAR); UROBILINOGEN URINE NORMAL (NORMAL)
[2017-03-06 23:09] LABS: URINE MICRO REVIEW NEEDED? YES
[2017-03-06 23:19] LABS: UR EPITHELIAL CELLS <10 /HPF (<10); URINE BACTERIA NEGATIVE /HPF; URINE RBC <10 /HPF (<10); URINE WBC <10 /HPF (<10)
[2017-03-06 23:29] LABS: URINE CASTS GRANULAR PRESENT; URINE CRYSTALS NONE SEEN; URINE SMALL ROUND CELLS NONE SEEN
[2017-03-07] MEDS: MERREM 1 GM in NS 50 ML IV SCH ×3 (04:26→20:56)
[2017-03-07 04:48] LABS: BASO% 0.2 % (0.0-0.8); EOS# 0.01 X1000 (0.0-0.7); HEMOGLOBIN 9.5 g/dL (14.0-18.0); IMM GRAN# 0.09 X1000 (0.0-0.04); IMM GRAN% 0.3 % (0.0-0.5); LYMPH# 0.71 X1000 (1.2-3.4); LYMPH% 2.7 % (20.5-51.1); MANUAL DIFF NEEDED? YES; MCH 32.6 PG (27-31); MCHC 32.8 g/dL (33-37); MCV 99.7 FL (81-99); MONO# 1.69 X1000 (0.11-0.59); MONO% 6.3 % (1.7-9.3); MPV 10.7 FL (7.4-10.4); NEUT% 90.5 % (42.2-75.2); PLT 222 X1000 (130-400); RBC 2.91 XMIL (4.7-6.1)
[2017-03-07 04:59] LABS: BANDS 8 % (0-1); LYMPHS 2 % (21-51); MONO 6 % (1-9)
[2017-03-07 05:02] LABS: CALCIUM 8.5 mg/dL (8.8-10.2); POTASSIUM 4.8 mmol/L (3.5-5.1)
[2017-03-07] MEDS: HUMALOG SUBQ SCH ×4 (06:09→20:55)
[2017-03-07] MEDS: SYNTHROID PEG SCH (06:14)
[2017-03-07] MEDS: TYLENOL PO PRN ×2 (06:17→15:51)
[2017-03-07] MEDS ORDERED: ATIVAN IV ONE (06:42)
[2017-03-07] MEDS ORDERED: SAMSCA PO ONE (08:49)
[2017-03-07] MEDS: LEXAPRO PEG SCH (09:02)
[2017-03-07] MEDS: COREG PEG SCH (09:02)
[2017-03-07] MEDS: NORVASC PEG SCH (09:02)
[2017-03-07] MEDS: PRILOSEC ORAL SUSPENSION SCH ×2 (09:02→20:56)
[2017-03-07] MEDS: FLOMAX PEG SCH (09:02)
[2017-03-07] MEDS: VITAMIN D SCH (09:02)
[2017-03-07 09:20] LABS: BASO% 0.2 % (0.0-0.8); HEMATOCRIT 24.5 % (42.0-52.0); HEMOGLOBIN 7.8 g/dL (14.0-18.0); IMM GRAN# 0.09 X1000 (0.0-0.04); IMM GRAN% 0.5 % (0.0-0.5); LYMPH# 0.68 X1000 (1.2-3.4); LYMPH% 3.5 % (20.5-51.1); MANUAL DIFF NEEDED? YES; MCH 31.3 PG (27-31); MCHC 31.8 g/dL (33-37); MCV 98.4 FL (81-99); MONO# 1.24 X1000 (0.11-0.59); MONO% 6.3 % (1.7-9.3); MPV 9.7 FL (7.4-10.4); NEUT% 89.5 % (42.2-75.2); PLT 235 X1000 (130-400); RBC 2.49 XMIL (4.7-6.1)
--- NOTE | 2017-03-07 09:27 | PROGRESS NOTE ---
DATE: 03/07/2017 SUBJECTIVE: Patient is sleepy and as per nursing staff there was some blood coming from his tracheostomy tube. OBJECTIVE: Vital Signs: Temperature 99.0 degrees, heart rate 80, respiratory rate 17, blood pressure 130/69, O2 saturation 100% on tracheostomy collar. General Examination: This is a chronically ill-looking and frail, 77-year-old male, lying in bed, in no acute distress. Using 10% L of oxygen. HEENT: Head is normocephalic, atraumatic. Anicteric sclerae. Waggoner conjunctiva. Mucous membranes dry. Neck: Supple. Patient has a tracheostomy tube noted. No JVD noted. Cardiovascular: S1, S2 heard. No murmurs, gallops, or rubs. Regular rate and rhythm. Respiratory: Coarse breath sounds in both pulmonary hadley, more prominent in both bases. Patient is not using any accessory muscles or having work of breathing. Abdomen: Soft. Nontender to palpation. Nondistended. Bowel sounds present. No organomegaly. Extremities: No clubbing, cyanosis, or edema. Peripheral pulses present in both legs. Neurological: Patient is sleepy today but moves 4 extremities. LABORATORY DATA: White cell count 26.72, hemoglobin 9.5, hematocrit 29.0, platelets 223,000. Sodium 127, potassium 4.8, chloride 93, bicarbonate 21, BUN 29, creatinine 1.2, glucose 111. ASSESSMENT AND PLAN: 1. Bilateral multifocal pneumonia. Currently this patient is on meropenem and vancomycin. Pulmonary and also infectious disease are following this patient. We will continue with the same management. We will follow recommendations from both subspecialities. 2. Leukocytosis, likely related to patient's pneumonia. White cell count has increased a lot from 11,000 to 26,000. I think this could be spurious so I will repeat a CBC and will go from there. 3. Chronic obstructive pulmonary disease. Patient is on breathing treatments. Actually he was receiving those 4 times per day and we are going to change it to q.4 hours which will be 6 nebulizations per day and see if that helps. 4. Recurrent lung cancer and throat cancer. The patient has a tracheostomy secondary to that condition and also a PEG tube. 5. Hyponatremia. The sodium has dropped a little bit today to 127. Considering that he may have an SIADH component will use Samsca today. Will check a BMP tomorrow. 6. Diarrhea. That condition has resolved. 7. Chronic kidney disease stage 1. Actually the creatinine is back to normal and GFR is also back to normal. So, I think this condition is completely resolved. 8. Diabetes type 2. Will continue with sliding scale insulin. It is important to remark that diabetes is well controlled with hemoglobin A1c done here during this hospitalization of 5.3. 9. Hypothyroidism. Will continue with home medications; in this case, levothyroxine. 10. Bilateral pulmonary fibrotic changes consistent with pulmonary idiopathic pulmonary fibrosis. Aware. cc: Kahlil Chavez MD
--- NOTE | 2017-03-07 10:14 | Diag Imaging Result Document ---
PROCEDURE NAME: CHEST-PORTABLE - 03/07/2017 CHEST SINGLE VIEW: INDICATION: Abnormal exam. COMPARISON: 03/06/2017. FINDINGS: There is cardiomegaly. Tracheostomy tube is demonstrated. Diffuse bilateral alveolar infiltrates have increased from the prior study compatible with worsening pulmonary edema. There is some mild sparing of the right lung base. There may be a small left effusion. No pneumothorax is demonstrated. IMPRESSION: Worsening pulmonary edema.
[2017-03-07 11:01] LABS: BANDS 6 % (0-1); HYPOCHROM 1+; LYMPHS 2 % (21-51); MONO 2 % (1-9)
[2017-03-07] MEDS: DUONEB (A & A) INH SCH ×4 (11:42→23:03)
--- NOTE | 2017-03-07 15:42 | PALLIATIVE CARE CONSULTATION ---
DATE: 03/07/2017 REQUESTING PHYSICIAN: Dr. Castillo. REASON FOR CONSULTATION: Goals of care. HISTORY OF PRESENT ILLNESS: This is a 77-year-old male with a past medical history of throat cancer, COPD, diabetes mellitus type 2, CVA, hyperlipidemia, hypertension, chronic kidney disease, and coronary artery disease. He was most recently admitted on 03/04/2017 after presenting to the ED with complaints of fever, increased weakness, back pain, shortness of breath and productive cough. While in the ED, diagnostics revealed findings associated with pneumonia. Prior to this admission Mr. Guerrero was being followed by Dr. Bland for treatment of recurrent pneumonia. Originally Mr. Guerrero was admitted to the medical floor. However due to a decline in his respiratory status he was transferred to the ICU. Currently he is lying in the hospital bed. He does not arouse during my assessment. He does not appear to be in any acute distress. His daughters are at the bedside. His daughters explained that over the last 6 months he has had an overall decline. They describe this decline as less functional and withdrawn. They state that he has lost weight over the last 6 months but is unsure of how much. The palliative care team has been consulted to assist with goals of care. REVIEW OF SYSTEMS: Unable to review. PAST MEDICAL HISTORY: 1. Throat cancer. 2. COPD. 3. Diabetes mellitus type 2. 4. Hyperlipidemia. 5. CVA. 6. Hypertension. 7. Chronic kidney disease. 8. Coronary artery disease. PAST SURGICAL HISTORY: 1. Cholecystectomy. 2. PEG tube placement. 3. Tracheostomy. 4. AAA repair. 5. Cardiac stent placement. 6. Neck surgery. SOCIAL HISTORY: Prior to this admission he lived at home. His daughter acts as a caregiver. He has a . However, she is in [facility] rehab at this time. Alcohol, tobacco and drug use have been denied. FAMILY HISTORY: Positive for heart disease, diabetes mellitus and dementia. PHYSICAL EXAM: General: This is a 77-year-old male who does not appear to be in any acute distress. HEENT: Atraumatic, normocephalic. Neck: Tracheostomy tube noted. Cardiovascular: Increased rate. Regular rhythm. Pulmonary: Lung sounds are diminished. Abdomen: Soft. Extremities: Pulses are palpable. No edema noted. IMPRESSION: This is a 77-year-old chronically ill appearing male with a past medical history as listed above in the history of present illness. I met with the patient's 2 daughters to discuss goals of care. Mr. Guerrero does not have advanced directive or power of county attorney. He is . His is in [facility] rehab at this time. The daughters state in the past that Mr. Guerrero has stated that he would want to be a full code. However since he has had an overall decline over the last few months and the most significant decline over the last couple of days, they feel that he would want to be a do not resuscitate. However they want to get all of his children together to make that decision. I have a meeting scheduled with all 4 children tomorrow 03/08/2017 at 3:30 p.m. to continue this conversation of goals of care and code status. The palliative care team will continue to follow. Thank you for this consultation. Dictated by SB Reynaga for Lakhwinder Stauffer MD cc: SB Reynaga MD
[2017-03-07] MEDS ORDERED: APRESOLINE IV PRN (16:22)
[2017-03-07] MEDS ORDERED: NORCO-10 PO PRN (16:23)
[2017-03-07] MEDS: VANCOMYCIN 1 GM/NS 1 GM/250 ML IVPB IV SCH (18:31)
--- NOTE | 2017-03-07 19:09 | PROGRESS NOTE ---
DATE: 03/07/2017 PRESENT ILLNESS: The patient has bilateral pneumonia. His sputum is growing methicillin- resistant Staph aureus. Therefore, I think he has a methicillin-resistant Staph aureus pneumonia. MEDICATIONS: The patient is receiving vancomycin and meropenem. PHYSICAL EXAMINATION: Temperature is 100.3 degrees, pulse 100, respirations 17, blood pressure 187/104.General: This is an ill-appearing, elderly male. He is in no acute distress. Neck: The patient has a tracheostomy in place. Thorax: Patient has an increased AP diameter of the chest. Lungs: Clear to auscultation. Cardiovascular: Regular heart rate. Abdomen: Soft and nontender. A G-tube is present. Neurologic: Patient remains obtunded at this time. LAB AND X-RAY: CBC shows a white count of 19,560, hemoglobin 7.8 and platelet count 235,000. Creatinine is 1.2. GFR is 59. Patient's stool is negative for Clostridium difficile. Sputum is growing a gram-negative onesimo. Chest x-ray shows worsening of the pulmonary edema. Blood and urine cultures are negative. ASSESSMENT AND PLAN: The patient has pneumonia. My plan of him is to continue meropenem but discontinue vancomycin pending the results of culture. COMORBIDITIES: Include COPD, diabetes mellitus, throat cancer and chronic kidney disease. cc: Hima Bland MD
[2017-03-07] MEDS: ATIVAN IV PRN (21:28)
[2017-03-08] MEDS: DUONEB (A & A) INH SCH ×5 (03:30→23:00)
[2017-03-08] MEDS: MERREM 1 GM in NS 50 ML IV SCH (04:25)
[2017-03-08 04:55] LABS: MANUAL DIFF NEEDED? NO
[2017-03-08 05:06] LABS: BASO% 0.2 % (0.0-0.8); EOS% 0.6 % (0.0-10.0); HEMATOCRIT 27.4 % (42.0-52.0); HEMOGLOBIN 8.7 g/dL (14.0-18.0); IMM GRAN# 0.09 X1000 (0.0-0.04); IMM GRAN% 0.5 % (0.0-0.5); LYMPH# 0.93 X1000 (1.2-3.4); LYMPH% 5.4 % (20.5-51.1); MCH 31.5 PG (27-31); MCHC 31.8 g/dL (33-37); MCV 99.3 FL (81-99); MONO# 1.52 X1000 (0.11-0.59); MONO% 8.8 % (1.7-9.3); NEUT% 84.5 % (42.2-75.2); PLT 266 X1000 (130-400); RBC 2.76 XMIL (4.7-6.1)
[2017-03-08 05:20] LABS: CALCIUM 8.8 mg/dL (8.8-10.2); POTASSIUM 4.6 mmol/L (3.5-5.1)
[2017-03-08] MEDS: HUMALOG SUBQ SCH ×4 (06:14→20:22)
[2017-03-08] MEDS: SYNTHROID PEG SCH (06:15)
--- NOTE | 2017-03-08 06:25 | Diag Imaging Result Document ---
PROCEDURE NAME: CHEST-PORTABLE - 03/08/2017 PORTABLE CHEST: COMPARISON: Compared to 03/07/2017. FINDINGS: No change in the tracheostomy tube. There are dense bilateral infiltrates. Overall these are slightly more pronounced in the right base. The heart is not enlarged. Questionable tiny effusions. IMPRESSION: Mild overall interval worsening.
[2017-03-08] MEDS: PRILOSEC ORAL SUSPENSION SCH ×2 (08:59→20:21)
[2017-03-08] MEDS: FLOMAX PEG SCH (08:59)
[2017-03-08] MEDS: NORVASC PEG SCH (09:00)
[2017-03-08] MEDS: LEXAPRO PEG SCH (09:00)
[2017-03-08] MEDS: COREG PEG SCH (09:00)
[2017-03-08] MEDS: VITAMIN D SCH (09:00)
[2017-03-08] MEDS: MAXIPIME 2 GM/NS 2 GM/100 ML IVPB IV SCH ×2 (10:22→21:37)
[2017-03-08 10:27] LABS: INR 0.99; PROTIME 10.4 Seconds (9.2-11.7); PTT 31.4 Seconds (22.0-36.0)
--- NOTE | 2017-03-08 10:29 | PROGRESS NOTE ---
DATE: 03/08/2017 SUBJECTIVE: Patient is a little more sleepy. As per records in the computer, no fever reported. No acute issues overnight. OBJECTIVE: Vital Signs: Temperature. 99.3, heart rate 102, respiratory rate 17, blood pressure 156/98, O2 saturation 95% on tracheostomy collar. General Examination: This is a chronically ill- looking, very frail and malnourished, 77-year-old, male, lying in bed, in no acute distress. HEENT: Head is normocephalic and atraumatic. Anicteric sclerae and pale conjunctivae. Mucous membranes dry. Neck: Supple. No JVD noted. Patient has a tracheostomy tube. No JVD noted. Cardiovascular Examination: S1 and S2 heard. No murmurs, gallops, or rubs. Regular rate and rhythm. Respiratory Examination: Coarse breath sounds in both pulmonary hadley, more prominent in both bases. Unchanged in comparing with yesterday. Patient is not using any accessory muscles or having work of breathing. Abdomen: Soft, nontender to palpation. Nondistended. Bowel sounds present. No organomegaly. Extremities: No clubbing, cyanosis, or edema. Peripheral pulses present in both legs. Integumentary: There is a PEG tube placed with a stoma that appears to be in good condition. No erythema noted. Neurological Examination: Patient is a little bit sleepy. Apparently moves 4 extremities. Laboratory Data: White cell count 17.32, hemoglobin 8.7, hematocrit 27.4, platelets 266,000. Sodium 133, potassium 4.6, chloride 97, bicarbonate 28, BUN 39, creatinine 1.3. ASSESSMENT AND PLAN: 1. Bilateral multifocal pneumonia. Patient is on meropenem and vancomycin. Chest x-ray from today shows worsening interval on both infiltrates. Pulmonary and infectious disease are following this patient. We will continue with the same management by now. 2. Leukocytosis. From day before yesterday, there has been an increase from 11,000 to 19,000. Today, it is 17,000. No fever reported. We will continue with the same antibiotic coverage. 3. Chronic obstructive pulmonary disease. Patient is on breathing treatments every 4 hours. We will continue with the same management. 4. Recurrent lung cancer and throat cancer. The patient has a tracheostomy secondary to that condition and percutaneous endoscopic gastrostomy tube as well. 5. Hyponatremia. The patient received 1 dose of Samsca and sodium was 133. We are going to give him 1 more dose of 30 mg of Samsca. We will check BMP tomorrow. 6. Diarrhea, resolved. 7. Chronic kidney disease stage I. Creatinine has got a little bit worse of 1.3 today. I do not think it is a big change on his renal function. We will continue checking BMP daily. 8. Hypothyroidism. We will continue with levothyroxine home dose. 9. Bilateral pulmonary fibrotic changes consistent with idiopathic pulmonary fibrosis. We are aware of that. cc: Kahlil Chavez MD
[2017-03-08] MEDS: OFIRMEV 1000 MG/ISOTONIC SOLN 1,000 MG/100 ML BOTTLE IV PRN (16:07)
--- NOTE | 2017-03-08 20:05 | PROGRESS NOTE ---
DATE: 03/08/2017 PRESENT ILLNESS: The patient has a bilateral pneumonia. His sputum is growing gram-negative rods which have not been identified yet. MEDICATIONS: The patient is receiving cefepime in a dose of 2 g IV every 12 hours. PHYSICAL EXAMINATION: Vital Signs: Temperature is 101.3 degrees, pulse 104, respirations 24, blood pressure 174/91. General: This is an ill-appearing elderly male. He has a tracheostomy in place and he is sedated. Lungs: Clear to auscultation. Cardiovascular: Regular heart rate. Abdomen: Soft and not tender. A G-tube is in place. The G-tube site is not red or purulent. Neurologic: Patient is obtunded. He did not respond to verbal stimuli. LABORATORY AND X-RAY: Chest x-ray shows bilateral infiltrates. The patient's creatinine is 1.3. GFR is 54. The patient's CBC shows a white count of 17,320, hemoglobin 8.7 and platelet count 266,000. ASSESSMENT AND PLAN: 1. Patient has gram-negative onesimo pneumonia. For now I will continue cefepime pending the identity and susceptibility testing of the gram-negative onesimo. Comorbidity includes chronic obstructive pulmonary disease, diabetes mellitus, throat cancer and chronic kidney disease. cc: Hima Bland MD
--- NOTE | 2017-03-08 21:36 | PALLIATIVE CARE PROGRESS NOTE ---
DATE: 03/08/2017 SUBJECTIVE: Mr. Guerrero appears sleepy. He has spiked a temperature of a 101.3 degrees. His PEG tube is now placed to low intermittent suction after the nurse found that he had tube feeding contents coming from his tracheostomy. He continues to have bloody sputum coming from his trach as well. He continues to have periods of agitation. OBJECTIVE: General: This is a 77-year-old male who is very frail and malnourished. He is lying in bed in no acute distress at this time. HEENT: Atraumatic, normocephalic. Neck: Supple. Patient has a tracheostomy tube. Cardiovascular: Increased rate, regular rhythm. Pulmonary: Lung sounds are coarse and diminished. Abdomen: Soft. Bowel sounds are hypoactive. Extremities: Pulses are palpable. ASSESSMENT/PLAN: I had a followup consultation with Mr. Guerrero's 3 daughters. One of the daughters went his visit Ms. Guerrero in rehab yesterday and explained Mr. Guerrero's current condition. The family has decided to make Mr. Guerrero a Do Not Resuscitate level 1. That order will be placed. The Palliative Care Team will continue to follow. Dictated by SB Reynaga for Lakhwinder Stauffer MD cc: SB Reynaga MD
[2017-03-08] MEDS: ATIVAN IV PRN (23:36)
[2017-03-09] MEDS: DUONEB (A & A) INH SCH ×6 (03:07→23:10)
[2017-03-09 05:11] LABS: MANUAL DIFF NEEDED? NO
[2017-03-09 05:34] LABS: BASO% 0.4 % (0.0-0.8); EOS# 0.35 X1000 (0.0-0.7); EOS% 2.5 % (0.0-10.0); HEMATOCRIT 26.7 % (42.0-52.0); HEMOGLOBIN 8.6 g/dL (14.0-18.0); IMM GRAN# 0.13 X1000 (0.0-0.04); IMM GRAN% 0.9 % (0.0-0.5); LYMPH# 0.59 X1000 (1.2-3.4); LYMPH% 4.2 % (20.5-51.1); MCH 32.1 PG (27-31); MCHC 32.2 g/dL (33-37); MCV 99.6 FL (81-99); MONO# 1.59 X1000 (0.11-0.59); MONO% 11.3 % (1.7-9.3); MPV 10.3 FL (7.4-10.4); NEUT% 80.7 % (42.2-75.2); PLT 279 X1000 (130-400); RBC 2.68 XMIL (4.7-6.1)
[2017-03-09 05:38] LABS: CALCIUM 8.9 mg/dL (8.8-10.2); POTASSIUM 4.4 mmol/L (3.5-5.1)
[2017-03-09] MEDS: SYNTHROID PEG SCH (06:22)
[2017-03-09] MEDS: HUMALOG SUBQ SCH ×4 (06:24→20:43)
[2017-03-09] MEDS: OFIRMEV 1000 MG/ISOTONIC SOLN 1,000 MG/100 ML BOTTLE IV PRN ×2 (07:55→23:49)
[2017-03-09] MEDS: LEXAPRO PEG SCH (08:02)
[2017-03-09] MEDS: VITAMIN D SCH (08:02)
[2017-03-09] MEDS: NORVASC PEG SCH (08:02)
[2017-03-09] MEDS: COREG PEG SCH (08:02)
[2017-03-09] MEDS: FLOMAX PEG SCH (08:02)
[2017-03-09] MEDS: APRESOLINE IV PRN ×2 (08:57→16:14)
[2017-03-09] MEDS: MAXIPIME 2 GM/NS 2 GM/100 ML IVPB IV SCH (09:33)
[2017-03-09] MEDS: PRILOSEC ORAL SUSPENSION SCH ×2 (11:00→20:17)
--- NOTE | 2017-03-09 11:38 | PROGRESS NOTE ---
DATE: 03/09/2017 SUBJECTIVE: Patient continues to be a little bit more sleepy and he is doing better in the last 3 days. No fever reported. No acute issues overnight. OBJECTIVE: Vital Signs: Temperature 101.4 degrees, heart rate 92, respiratory rate 17, blood pressure 192/98, O2 saturation 92% on tracheostomy collar. General examination: This is a chronically ill-looking, malnourished, and very frail, 82-year-old male, lying in bed in no acute distress. HEENT: Head is normocephalic, atraumatic. Anicteric sclerae and pale conjunctivae. Mucous membranes dry. Neck: Supple. No JVD noted. No carotid bruits. No lymphadenopathy. No thyromegaly. Cardiovascular exam: S1, S2 heard. No murmurs, gallops, or rubs. Regular rate and rhythm. Respiratory exam: Coarse breath sounds present in both pulmonary hadley. The same in comparing with previous days. The patient is not using any accessory muscles or having work of breathing. Abdomen: Soft, nontender to palpation. Bowel sounds present. No organomegaly. Extremities: No clubbing, cyanosis, or edema. Peripheral pulses present in both legs. Neurological exam: Patient is definitely more sleepy, although he answers to verbal stimuli. Moves 4 extremities. LABORATORY DATA: White cell count 14.1, hemoglobin 8.6, hematocrit 26.7, platelets 279. BMP shows a creatinine 1.3, BUN 39. ASSESSMENT AND PLAN: 1. Bilateral multifocal pneumonia. Patient on meropenem and vancomycin. Unfortunately, the x- ray from yesterday shows worsening trouble on both infiltrates. Patient started spiking fever again. Pulmonary on board. Infectious disease are following this patient. We will continue with the same management by now. We will leave Dr. Bland to change any antibiotics if needed. 2. Leukocytosis. Although the patient is getting better, the patient is spiking fever. 3. Recurrent lung and throat cancer. The patient has tracheostomy secondary to throat cancer. Also, we are using that to provide oxygen. 4. Hyponatremia. That condition is resolved. 5. 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 6. Constipation. Patient is on MiraLAX. 7. Acute kidney injury. The creatinine is still the same, a little bit elevated. We will check creatinine tomorrow. cc: Kahlil Chavez MD
--- NOTE | 2017-03-09 19:07 | PROGRESS NOTE ---
DATE: 03/09/2017 SUBJECTIVE: The patient is being treated for Pseudomonas pneumonia. The patient's organism was only intermediately susceptible to cefepime, and it was fully susceptible to Zosyn. Therefore, I stopped the cefepime and started him on Zosyn. MEDICATIONS: As mentioned above, the patient has been switched from cefepime to Zosyn. PHYSICAL EXAMINATION: Vital Signs: Temperature is 98.5, pulse 90, respirations 16, blood pressure 161/81. General: This is an ill-appearing, elderly male. He is in no acute distress. Neck: Patient has a tracheostomy in place. Lungs: There were bilateral rhonchi. Cardiovascular: Heart rate was regular. Abdomen: Soft and nontender. LAB AND X-RAY: There is no new x-ray for today. The patient's laboratory studies show a CBC with a white count of 14,100, hemoglobin 8.6 and platelet count 279,000. Creatinine is 1.3. GFR is 54. ASSESSMENT AND PLAN: The patient has a Pseudomonas pneumonia. As mentioned above, I have switched him from cefepime to Zosyn. Comorbidities are chronic obstructive pulmonary disease, diabetes mellitus, throat cancer and chronic kidney disease. cc: Hima Bland MD
[2017-03-09] MEDS: ZOSYN 4.5 GM/NS 4.5 GM/100 ML IVPB IV SCH (20:16)
[2017-03-09] MEDS: CLINIMIX E 4.25%-5% SOLUTION 1,000 ML IV SCH (20:22)
[2017-03-10] MEDS: ZOSYN 4.5 GM/NS 4.5 GM/100 ML IVPB IV SCH ×3 (01:38→14:14)
[2017-03-10] MEDS: APRESOLINE IV PRN ×2 (03:42→10:04)
[2017-03-10] MEDS: DUONEB (A & A) INH SCH ×4 (03:46→16:48)
[2017-03-10 04:57] LABS: MANUAL DIFF NEEDED? NO
[2017-03-10 05:04] LABS: BASO% 0.7 % (0.0-0.8); EOS# 0.51 X1000 (0.0-0.7); EOS% 4.2 % (0.0-10.0); HEMOGLOBIN 8.7 g/dL (14.0-18.0); IMM GRAN% 0.8 % (0.0-0.5); LYMPH# 0.55 X1000 (1.2-3.4); LYMPH% 4.5 % (20.5-51.1); MCH 31.2 PG (27-31); MCHC 31.1 g/dL (33-37); MCV 100.4 FL (81-99); MONO# 1.52 X1000 (0.11-0.59); MONO% 12.5 % (1.7-9.3); NEUT% 77.3 % (42.2-75.2); PLT 297 X1000 (130-400); RBC 2.79 XMIL (4.7-6.1)
[2017-03-10 05:23] LABS: CALCIUM 8.9 mg/dL (8.8-10.2); POTASSIUM 4.6 mmol/L (3.5-5.1)
[2017-03-10] MEDS: HUMALOG SUBQ SCH ×3 (06:19→17:15)
[2017-03-10] MEDS: SYNTHROID PEG SCH (06:23)
[2017-03-10] MEDS: PRILOSEC ORAL SUSPENSION SCH (08:04)
[2017-03-10] MEDS: CLINIMIX E 4.25%-5% SOLUTION 1,000 ML IV SCH (08:04)
[2017-03-10] MEDS: FLOMAX PEG SCH (08:05)
[2017-03-10] MEDS: NORVASC PEG SCH (08:05)
[2017-03-10] MEDS: COREG PEG SCH (08:05)
[2017-03-10] MEDS: LEXAPRO PEG SCH (08:05)
[2017-03-10] MEDS: VITAMIN D SCH (08:05)
--- NOTE | 2017-03-10 08:16 | Diag Imaging Result Document ---
PROCEDURE NAME: CHEST-PORTABLE - 03/10/2017 ERECT AP PORTABLE CHEST AT 0550 HOURS: FINDINGS: There is a tracheostomy tube. There are alveolar opacities throughout both lungs particularly in the right upper lobe. This has not changed appreciably since 03/08/2017 but is considerably worse than on 03/05/2017. IMPRESSION: Pulmonary edema and/or pneumonia.
[2017-03-10] MEDS ORDERED: LASIX IV ONE (11:57)
--- NOTE | 2017-03-10 13:20 | PROGRESS NOTE ---
DATE: 03/10/2017 SUBJECTIVE: Patient is a little bit more awake. No fever reported. No nausea or vomiting. OBJECTIVE: Vital Signs: Temperature 97.5 degrees, heart rate 82, respiratory rate 15, blood pressure 168/85, and O2 saturation 98% on tracheostomy collar. General Examination: This is a chronically ill-looking, malnourished, and very frail 82-year-old male, lying in bed in no acute distress. HEENT: Head is normocephalic, atraumatic. Anicteric sclerae and pale conjunctivae. Mucous membranes dry. Neck: Supple. No JVD noted. No carotid bruits. No lymphadenopathy. No thyromegaly. Cardiovascular: S1 and S2 heard. No murmurs, gallops, or rubs. Regular rate and rhythm. Respiratory: Coarse breath sounds are still present in both pulmonary hadley, the same when comparing with previous days. Patient is not using any accessory muscles or having work of breathing. Abdomen: Soft, nontender to palpation. Bowel sounds present. No organomegaly. Extremities: No clubbing, cyanosis, or edema. Peripheral pulses present in both legs. Neurological: Patient is a little bit more awake. He moves 4 extremities. LABORATORY DATA: White cell count 12.13, hemoglobin 8.7, hematocrit 28.0, platelets 297,000. BMP shows creatinine 1.3. ASSESSMENT AND PLAN: 1. Bilateral multifocal pneumonia secondary to Pseudomonas. Patient currently is on Zosyn now, as per Dr. Bland, because the culture showed Pseudomonas. Patient is not spiking fever anymore. We will continue with the same management. 2. Leukocytosis that is almost resolved and secondary to pneumonia. 3. Recurrent lung and throat cancer. The patient has tracheostomy secondary to throat cancer. We are using that to provide oxygen. 4. Hyponatremia, resolved. 5. Constipation. Patient on MiraLAX. 6. Acute kidney injury. Creatinine is still the same. We will continue with the same management. cc: Kahlil Chavez MD
[2017-03-10] MEDS ORDERED: MORPHINE IV PRN (16:46)
--- NOTE | 2017-03-10 18:07 | PALLIATIVE CARE PROGRESS NOTE ---
DATE: 03/10/2017 SUBJECTIVE: It appears that Mr. Guerrero is declining. He is now requiring 100% oxygen via his trach collar with sats in the 70s. The family has elected for comfort measures only. OBJECTIVE: General: This is a 77-year-old chronically ill appearing male who will arouse to verbal and tactile stimulation. Appears comfortable. HEENT: Atraumatic, normocephalic. Neck: Supple. Trach noted. Cardiovascular: Increased rate. Regular rhythm. Pulmonary: Coarse breath sounds auscultated bilaterally. Respirations are somewhat labored. Abdomen: Soft. Extremities: Pulses are palpable. ASSESSMENT/PLAN: It appears the patient is declining and the family has elected for comfort measures only. Dr. Bland and I met with the patient's family to discuss comfort measures. The family has agreed to stop all IV fluids, IV nutrition, antibiotics, any diagnostic tests or lab draws. Only medications for comfort will be in place. Mr. Guerrero is a DNR level 1. It appears that his palliative performance scale is 10%. I expect Mr. Guerrero will be transferred to the medical floor and at that time a hospice consult would be appropriate. The palliative care team will continue to follow. Dictated by SB Reynaga for Lakhwinder Stauffer MD cc: SB Reynaga MD
[2017-03-10] MEDS: MORPHINE IV PRN (20:37)
[2017-03-10] MEDS: ATIVAN IV PRN (21:00)
[2017-03-11] MEDS: BENADRYL IV PRN ×3 (09:25→18:45)
--- NOTE | 2017-03-11 11:00 | PROGRESS NOTE ---
DATE: 03/11/2017 SUBJECTIVE: Patient is lying in bed, breathing comfortable. No acute issues overnight as per nursing staff. OBJECTIVE: Vital Signs: Temperature 98.5 degrees, heart rate 98, respiratory rate 12, blood pressure 95/53, O2 saturation 95% on tracheostomy collar. General Examination: This a chronically ill-looking, malnourished and very frail 82-year-old male, lying in bed, in no acute distress. HEENT: Head is normocephalic, atraumatic. Neck: Supple. No JVD. Cardiovascular: S1, S2 heard. No murmurs, gallops, or rubs. Regular rate and rhythm. Respiratory: Coarse breath sounds in both bases. Getting a little bit worse in comparing with yesterday. Abdomen: Soft, nontender to palpation. PEG tube present. Extremities: No clubbing, cyanosis, or edema. Peripheral pulses present in both legs. Neurological: Patient is sleepy. ASSESSMENT AND PLAN: 1. Bilateral multifocal pneumonia secondary to pseudomonas. 2. Recurrent lung and throat cancer. 3. Hyponatremia. 4. Constipation. 5. Acute kidney injury. PLAN: Patient's medical conditions have been getting worse so the family has decided yesterday to just provide comfort care measures only. We will honor their wishes. Currently he is on morphine and Ativan p.r.n. We are going to continue with the same management. We are going to transfer this patient out to the unit today. Code status DNR level 1. cc: Kahlil Chavez MD
[2017-03-11] MEDS: MORPHINE IV PRN (16:01)
[2017-03-11] MEDS: DILAUDID IV PRN (18:23)
[2017-03-11] MEDS ORDERED: TYLENOL PR PRN (21:02)
[2017-03-12] MEDS: TRANSDERM-SCOP TD SCH (00:49)
[2017-03-12] MEDS: BENADRYL IV PRN (00:49)
[2017-03-12] MEDS: DILAUDID IV PRN (07:02)
[2017-03-12] MEDS ORDERED: DILAUDID IV SCH (10:00)
[2017-03-12] MEDS ORDERED: DILAUDID IM ONE (10:37)
[2017-03-12] MEDS: DILAUDID IV SCH ×11 (12:02→23:45)
[2017-03-12] MEDS: ATROPINE 1% OPHTH SOLN SL PRN ×2 (13:12→20:33)
--- NOTE | 2017-03-12 14:53 | PROGRESS NOTE ---
DATE: 03/12/2017 SUBJECTIVE: Patient is lying in bed, seems like he is moaning in pain not comfortable at this time. OBJECTIVE: Vital Signs: Temperature 99.0 degrees, heart rate 134, respiratory rate 9, blood pressure 134/64, O2 saturation 92% on tracheostomy collar. General Examination: This is a 77- year-old male lying in bed in mild distress because of pain. Cardiovascular: S1, S2 heard, tachycardic, no murmurs, gallops, rubs. Respiratory: Clear bilaterally to auscultation. No work of breathing or using accessory muscles. Abdomen: Soft, nontender to palpation. Bowel sounds present. No organomegaly. Extremities: No clubbing, cyanosis, or edema. Peripheral pulses present in both legs. Neurological: Patient not responsive to verbal stimuli. ASSESSMENT AND PLAN: 1. Bilateral multifocal pneumonia secondary to Pseudomonas. 2. Recurrent lung and throat cancer. 3. Hyponatremia. 4. Constipation. 5. Acute kidney injury. 6. Patient is admitted to the hospital for the above-mentioned conditions and now he is on Ativan and Dilaudid and we are going to increase the doses of that medication because he is not controlling the pain very well. Also will use atropine drops in just in case this patient is having a lot of secretions. Will continue monitoring this patient closely. cc: Kahlil Chavez MD
[2017-03-13] MEDS: DILAUDID IV SCH ×24 (00:43→23:14)
--- NOTE | 2017-03-13 14:35 | PROGRESS NOTE ---
DATE: 03/13/2017 SUBJECTIVE: Patient lying in bed. Seems to be comfortable, breathing fine. OBJECTIVE: Vital Signs: Temperature 99.0 degrees, heart rate 60, respiratory rate 9, blood pressure 134/64, O2 saturation tracheostomy collar. General: This is a 77-year-old male looking chronically ill appearing lying in bed in no acute distress. Cardiovascular: S1, S2 heard. No murmurs, gallops, rubs. Respiratory: Coarse breath sounds both pulmonary hadley. Neurological: Patient does not answer verbal stimuli. ASSESSMENT AND PLAN: 1. Bilateral multifocal pneumonia secondary to Pseudomonas. 2. Recurrent lung and throat cancer. 3. Hyponatremia. 4. Constipation. 5. Acute kidney injury. PLAN: Patient is admitted to hospital for inpatient hospice now with all those medical condition not being treated. At this point we are going to continue with the same management. cc: Kahlil Chavez MD
--- NOTE | 2017-03-13 17:32 | PALLIATIVE CARE PROGRESS NOTE ---
DATE: 03/13/2017 SUBJECTIVE: Mr. Guerrero is lying in bed. He is unresponsive. He appears comfortable. Family is at the bedside. Mr. Guerrero is receiving comfort measures only. OBJECTIVE: General: This is a 77-year-old, terminally ill-appearing, male who does not appear to be in any acute distress. Cardiovascular: Regular rate and rhythm. Pulmonary: Coarse crackles auscultated bilaterally. Respirations are nonlabored. He is having 30-60 seconds periods of apnea. Extremities: Warm. Pulses are palpable. No edema noted. ASSESSMENT AND PLAN: As mentioned, Mr. Guerrero is receiving comfort measures only. He appears very comfortable at this time. He has family at bedside. I explained the dying process and medications used for comfort and answered all questions. Palliative performance scale remains at 10%. I expect that Mr. Guerrero will pass in the next 24 hours. The palliative care team will continue to follow. Dictated by SB Reynaga for Lakhwinder Stauffer MD cc: SB Reynaga MD
[2017-03-14] MEDS: DILAUDID IV SCH ×25 (00:14→23:31)
--- NOTE | 2017-03-14 10:56 | PROGRESS NOTE ---
DATE: 03/14/2017 SUBJECTIVE: This patient is lying in the bed. He looks comfortable. He has been having periods of apnea. Family member at the bedside. He is lethargic. OBJECTIVE: Vital Signs: Temperature 97.3 degrees, pulse 97, respiratory rate 9, blood pressure 141/51, oxygen saturation 97% on a trach collar. HEENT: Head normocephalic. No trauma. PERRLA. Neck: Supple. No JVD. A tracheostomy in place with a trach collar. Cardiovascular: RRR. Tachycardic. Chest: Bilateral coarse breath sounds with generalized rhonchi, decreased breath sounds at the bases. Abdomen: Soft, nontender, nondistended. PEG tube in place. Extremities: No edema. No clubbing. No cyanosis. Neurological: This patient is lethargic and he is not answering to verbal stimuli. LABORATORY: No lab work today. ASSESSMENT AND PLAN: 1. Bilateral multifocal pneumonia secondary to Pseudomonas. 2. Recent lung and throat cancer. 3. Hyponatremia. 4. Constipation. 5. Acute kidney injury. PLAN: We will continue with comfort measures only, he is resting comfortably on the bed. I will not make any changes. cc: Farooq Lou MD
[2017-03-15] MEDS: DILAUDID IV SCH ×24 (00:29→23:10)
[2017-03-15] MEDS: TRANSDERM-SCOP TD SCH (00:39)
[2017-03-15] MEDS: ATIVAN IV PRN ×2 (10:24→18:07)
--- NOTE | 2017-03-15 11:31 | PALLIATIVE CARE PROGRESS NOTE ---
DATE: 03/15/2017 SUBJECTIVE: No change. Mr. Guerrero remains comfortable. Family is at the bedside. OBJECTIVE: General: This is a 77-year-old ill-appearing male who does not appear to be in any acute distress. Cardiovascular: Increased rate. Regular rhythm. Pulmonary: Respirations are nonlabored. Coarse crackles auscultated bilaterally. Extremities: Warm. Pulses are palpable. ASSESSMENT AND PLAN: Mr. Guerrero is receiving comfort measures. He appears very comfortable at this time. I further explained the dying process and the medications used for comfort with his daughters. Palliative performance scale remains 10%. The palliative care team will continue to follow. Dictated by SB Reynaga for Lakhwinder Stauffer MD cc: SB Reynaga MD
--- NOTE | 2017-03-15 11:32 | PALLIATIVE CARE PROGRESS NOTE ---
DATE: 03/14/2017 SUBJECTIVE: Mr. Guerrero appears about the same. He is unresponsive. He appears comfortable. Family is at the bedside. OBJECTIVE: General: This is a 77-year-old, ill-appearing, male, who does not appear to be in any acute distress. Cardiovascular: Regular rate and rhythm. Pulmonary: Coarse crackles auscultated bilaterally. Respirations are nonlabored. He continues to have episodes of apnea. Extremities: Warm. Pulses are palpable. ASSESSMENT AND PLAN: Mr. Guerrero is receiving comfort measures only. He appears very comfortable at this time. I do not feel that he is appropriate for inpatient hospice services. The family is at the bedside. Palliative performance scale remains 10%. The palliative care team will continue to follow. Dictated by SB Reynaga for Lakhwinder Stauffer MD cc: SB Reynaga MD
--- NOTE | 2017-03-15 14:46 | PROGRESS NOTE ---
DATE: 03/15/2017 SUBJECTIVE: This patient is lying in the bed. He looks comfortable. I can notice that this patient has periods of apnea, he is breathing around 4-8 times per minute. He is lethargic. Family members at the bedside. OBJECTIVE: Vital Signs: Temperature 100 degrees, pulse 100, respiratory rate taken by me 8, blood pressure 129/54, oxygen saturation 98% on 10 L of oxygen through trach collar. General: A 77-year-old male. He looks frail and chronically ill, cachectic. HEENT: Head normocephalic. No trauma. PERRLA. Neck: Supple. No JVD. No masses. Central trachea. Tracheostomy in place with trach collar. Cardiovascular: RRR. Tachycardic. Chest: Bilateral coarse breath sounds with generalized rhonchi. Decreased breath sounds at the bases. Abdomen: Soft, nondistended. PEG tube in place. Extremities: No edema. No clubbing. No cyanosis. Neurological: This patient is lethargic. He is not answering to verbal stimuli. LABORATORY: No lab work today. ASSESSMENT: 1. Bilateral multifocal pneumonia secondary to Pseudomonas. 2. Recent lung and throat cancer. 3. Hyponatremia. 4. Constipation. 5. Acute kidney injury. PLAN: We will continue with comfort measures only. He is resting comfortably on the bed, we will continue with the same medications, especially Ativan, Dilaudid, oxygen, scopolamine, and Benadryl. cc: Farooq Lou MD
[2017-03-15] MEDS: ATROPINE 1% OPHTH SOLN SL PRN (23:14)
[2017-03-16] MEDS: DILAUDID IV SCH ×24 (00:32→23:03)
[2017-03-16] MEDS: ATIVAN IV PRN ×4 (12:15→23:03)
--- NOTE | 2017-03-16 13:47 | PROGRESS NOTE ---
DATE: 03/16/2017 SUBJECTIVE: This patient is lying on the bed. He looks comfortable. He has been having periods of apnea. He is lethargic. Family members are at the bedside. OBJECTIVE: Vital Signs: Temperature 99.8 degrees, pulse 64, respiratory rate 6, blood pressure 125/51, oxygen saturation 99% on 15 liters of oxygen flow. HEENT: Head normocephalic. No trauma. PERRLA. Neck: Supple. No JVD. No masses. Central trachea. Tracheostomy in place with a trach collar. Cardiovascular: RRR. Chest: Bilateral coarse breath sounds with generalized rhonchi. Decreased breath sounds at the bases. Abdomen: Soft, nontender, nondistended. PEG tube in place. Extremities: No edema. No clubbing. No cyanosis. Neurological: The patient is lethargic. He is not answering to verbal stimuli. LABORATORY DATA: No lab work today. ASSESSMENT: 1. Bilateral multifocal pneumonia secondary to Pseudomonas. 2. Recent lung and throat cancer with tracheostomy and percutaneous endoscopic gastrostomy tube placement. 3. Constipation. 4. Acute kidney injury. PLAN: We will continue with comfort measures only. cc: Farooq Lou MD
--- NOTE | 2017-03-16 14:03 | PALLIATIVE CARE PROGRESS NOTE ---
DATE: 03/16/2017 SUBJECTIVE: Mr. Guerrero is minimally responsive. He continues to have periods of apnea. He appears comfortable. He has family at the bedside. OBJECTIVE: General: This is an ill-appearing 77-year-old male, who does not appear to be in any acute distress. Cardiovascular: Increased rate. Regular rhythm. Pulmonary: Lung sounds are greatly diminished with coarse crackles auscultated bilaterally. Abdomen: Soft. Extremities: Warm. Pulses are palpable. ASSESSMENT AND PLAN: Mr. Guerrero continues to receive comfort measures. He appears very comfortable at this time. Palliative performance scale remains 10%. He has family at the bedside. All questions regarding the dying process were answered. The palliative care team will continue to follow. Dictated by SB Reynaga for Lakhwinder Stauffer MD cc: SB Reynaga MD
[2017-03-17] MEDS: ATIVAN IV PRN ×8 (00:43→21:32)
[2017-03-17] MEDS: DILAUDID IV SCH ×25 (00:43→23:44)
--- NOTE | 2017-03-17 14:04 | PROGRESS NOTE ---
DATE: 03/17/2017 SUBJECTIVE: This patient is lying comfortably on the bed. He is having a period of apnea. He is lethargic. OBJECTIVE: Vital Signs: Temperature 99.8 degrees, pulse 57, respiratory rate 8, and oxygen saturation 99% on a trach collar. HEENT: Head normocephalic. No trauma. PERRLA. Neck: Supple. No JVD. No masses. Central trachea. Tracheostomy in place with a trach collar. Cardiovascular: RRR. Chest: Bilateral coarse breath sounds with generalized rhonchi, decreased breath sounds at the bases. Abdomen: Soft, nontender, nondistended. PEG tube in place. Extremities: No edema. No clubbing. No cyanosis. Neurological: The patient is lethargic. He is not answering to verbal stimuli. LABORATORY: No laboratory work today. ASSESSMENT AND PLAN: 1. Bilateral multifocal pneumonia secondary to Pseudomonas. 2. Recent lung and throat cancer with tracheostomy and PEG tube. 3. Constipation. 4. Acute kidney injury. Will continue with comfort measures only. cc: Farooq Lou MD
--- NOTE | 2017-03-17 14:43 | PALLIATIVE CARE PROGRESS NOTE ---
DATE: 03/17/2017 SUBJECTIVE: Not much change from yesterday. Patient remains comfortable. He is unresponsive. Continues to have periods of apnea. There is no family at the bedside. OBJECTIVE: Cardiovascular: Regular rate and rhythm. Pulmonary: Coarse breath sounds auscultated bilaterally. Periods of apnea noted. Abdomen: Soft. Extremities: Warm. Pulses are palpable. ASSESSMENT AND PLAN: Mr. Guerrero continues to receive comfort measures only. He appears very comfortable at this time. He is a DNR level 1. Palliative performance scale is 10%. There is no family at the bedside however I did call his daughter to update her on his current status. The palliative care team will continue to follow. Dictated by SB Reynaga for Lakhwinder Stauffer MD cc: SB Reynaga MD
[2017-03-18] MEDS: DILAUDID IV SCH ×24 (00:51→23:42)
[2017-03-18] MEDS: TRANSDERM-SCOP TD SCH (02:21)
[2017-03-18] MEDS: ATROPINE 1% OPHTH SOLN SL PRN ×4 (10:50→22:41)
[2017-03-18] MEDS: ATIVAN IV PRN (11:46)
--- NOTE | 2017-03-18 14:33 | PROGRESS NOTE ---
DATE: 03/18/2017 SUBJECTIVE: This patient is lying on the bed, he looks he looks comfortable, he is lethargic. He is not answering to verbal stimuli. OBJECTIVE: Vital Signs: Temperature 98.1 degrees, pulse 103, blood pressure 117/45, oxygen saturation 96% on a trach collar. HEENT: Head normocephalic. No trauma. PERRLA. Neck: Supple. No JVD. No masses. Central trachea. Tracheostomy in place with a trach collar. Cardiovascular: RRR. Chest: Bilateral coarse breath sounds with generalized rhonchi, decreased breath sounds at the bases. Abdomen: Soft, nontender, nondistended. PEG tube in place. Extremities: No edema. No clubbing. No cyanosis. Neurological: The patient is lethargic. He is not answering to any verbal stimuli. LABORATORY: No lab work today. ASSESSMENT AND PLAN: 1. Bilateral multifocal pneumonia secondary to Pseudomonas, recent lung and throat cancer with tracheostomy and PEG tube placement. 2. Constipation. 3. Acute kidney injury. 4. This patient is hospitalized with just comfort measures only. cc: Farooq Lou MD
[2017-03-19] MEDS: DILAUDID IV SCH ×24 (00:41→23:29)
[2017-03-19] MEDS: ATROPINE 1% OPHTH SOLN SL PRN ×3 (02:38→22:25)
[2017-03-19] MEDS: ATIVAN IV PRN (14:02)
--- NOTE | 2017-03-19 16:36 | PROGRESS NOTE ---
DATE: 03/19/2017 SUBJECTIVE: This patient is lying on the bed. He looks comfortable. He is lethargic. He is not answering to verbal stimuli. OBJECTIVE: Vital Signs: Temperature 99.8 degrees, pulse 104, respiratory rate 8. Blood pressure today not taken. O2 saturation 99 on trach collar. HEENT: Head normocephalic. No trauma. PERRLA. Neck: Supple. No JVD. No masses. Central trachea. Tracheostomy in place with trach collar. Cardiovascular: RRR. Chest: Bilateral coarse breath sounds with generalized rhonchi. Decreased breath sounds at the bases. Abdomen: Soft, nontender, nondistended. PEG tube in place. Extremities: No edema. No clubbing. No cyanosis. Neurological: The patient is lethargic. LABORATORY: No lab work today. ASSESSMENT AND PLAN: 1. Bilateral multifocal pneumonia secondary to Pseudomonas and respiratory failure. 2. Recent history of lung and throat cancer with tracheostomy and PEG tube placement. 3. Constipation. 4. Kidney injury. 5. Comfort measures only. cc: Farooq Lou MD
[2017-03-20] MEDS: DILAUDID IV SCH ×24 (00:56→23:19)
[2017-03-20] MEDS: ATIVAN IV PRN ×2 (08:35→10:48)
--- NOTE | 2017-03-20 13:14 | PROGRESS NOTE ---
DATE: 03/20/2017 SUBJECTIVE: This patient is lying on the bed. He looks comfortable. He is lethargic. He is not answering to verbal stimuli. OBJECTIVE: Vital Signs: Temperature 99 degrees, pulse 86, respiratory rate 19, blood pressure 105/35, oxygen saturation, 98% on a trach collar. HEENT: Head normocephalic. No trauma. PERRLA. Neck: Supple. No JVD. No masses. Central trachea. Tracheostomy in place with trach collar. Cardiovascular: RRR. Chest: Bilateral coarse breath sounds with generalized rhonchi. Decreased breath sounds at the bases. Abdomen: Soft, nontender, nondistended. PEG tube in place. Extremities: No edema. No clubbing. No cyanosis. Neurological: The patient is lethargic. LABORATORY: No lab work today. ASSESSMENT AND PLAN: 1. Bilateral multifocal pneumonia secondary to Pseudomonas and respiratory failure. 2. Recent history of lung and throat cancer with tracheostomy and PEG tube placement. 3. Constipation. 4. Kidney injury. 5. Comfort measures only. cc: Farooq Lou MD
--- NOTE | 2017-03-20 20:45 | PALLIATIVE CARE PROGRESS NOTE ---
DATE: 03/20/2017 SUBJECTIVE: Mr. Guerrero is nonresponsive. He appears comfortable. He is receiving comfort measures only. There are no family at the bedside. OBJECTIVE: HEENT: Atraumatic, normocephalic. Neck: Supple. Cardiovascular: Regular rate and rhythm now with murmur. Pulmonary: Lung sounds are greatly diminished with scattered rhonchi. Abdomen: Soft. Extremities: Pulses are palpable and extremities are warm. ASSESSMENT AND PLAN: Mr. Guerrero is receiving comfort measures only. He appears very comfortable at this time. There is currently no family at the bedside. Palliative performance scale remains 10%. I expect Mr. Guerrero to pass at any time. The palliative care team will continue to follow. Dictated by SB Reynaga for Lakhwinder Stauffer MD cc: SB Reynaga MD
[2017-03-21] MEDS: DILAUDID IV SCH ×9 (00:18→08:15)
[2017-03-21] MEDS: TRANSDERM-SCOP TD SCH (02:11)
[2017-03-21 07:50] VITALS: BP 125/38
[2017-03-21] MEDS ORDERED: DILAUDID PCA VIAL IV PRN (08:17)
[2017-03-21] MEDS ORDERED: LR 1,000 ML IV SCH (08:17)
[2017-03-21] MEDS ORDERED: NARCAN IV PRN (08:17)
--- NOTE | 2017-03-21 11:17 | PROGRESS NOTE ---
DATE: 03/21/2017 SUBJECTIVE: The patient is lying in bed, comfortable, lethargic. OBJECTIVE: Vital Signs: Temperature 96.4 degrees, heart rate 66, respiratory rate 8, blood pressure 125/38, O2 saturation 100% on tracheostomy collar. ASSESSMENT AND PLAN: 1. Bilateral multifocal pneumonia secondary to Pseudomonas. 2. Recent history of lung and throat cancer. 3. Constipation. 4. Acute kidney injury. 5. The patient is on comfort measures only. Patient is doing good. [employer] has been started recently. The patient could pass at any time. 6. We will continue to follow this patient. cc: Kahlil Chavez MD
--- NOTE | 2017-03-21 14:28 | PALLIATIVE CARE PROGRESS NOTE ---
DATE: 03/21/2017 SUBJECTIVE: Not much change. Mr. Guerrero continues to receive comfort measures only. He appears comfortable. OBJECTIVE: HEENT: Atraumatic, normocephalic. Neck: Supple. Cardiovascular: Regular rate and rhythm with murmur. Pulmonary: Lung sounds are greatly diminished with scattered rhonchi. Abdomen: Soft. Extremities: Pulses are palpable. The extremities are warm. ASSESSMENT AND PLAN: Mr. Guerrero is receiving comfort measures only. Palliative performance scale remains 10%. I expect Mr. Guerrero to pass any time. The palliative care team will continue to follow. Dictated by SB Reynaga for Lakhwinder Stauffer MD cc: SB Reynaga MD
--- NOTE | 2017-03-22 13:17 | DISCHARGE SUMMARY ---
ADMISSION DATE: 03/04/2017 DISCHARGE DATE: 03/22/2017 CONSULTATIONS: 1. 2. Hima Bland MD with Infectious Disease. 3. Priscilla Anglin with Palliative Care. PERTINENT PROCEDURES: Chest, abdomen, and pelvis CT showed worsening ground-glass opacities in the right lung and no ground-glass opacities on the left. A 7.7 mm noncalcified nodule in the right lower lobe. Worsening mediastinal and hilar lymphadenopathy. Uncomplicated diverticulosis coli. No definite acute pathology involving the abdomen or pelvis. DISCHARGE DIAGNOSES: 1. Bilateral multifocal pneumonia secondary to Pseudomonas and respiratory failure. Patient on comfort measures. 2. The patient on comfort measures and on 03/22/2017 at 3:03 a.m. 3. Recent history of lung and throat cancer with tracheostomy and PEG tube placement. 4. Constipation. 5. Kidney injury. 6. Diabetes mellitus type 2. 7. Hypertension. 8. Hypothyroidism. HOSPITAL COURSE: Briefly, Mr. Guerrero is a 77-year-old, male with a past medical history throat cancer, COPD, diabetes mellitus type 2, cerebrovascular accident, hyperlipidemia, hypertension, chronic kidney disease, and coronary artery disease. Was admitted on 03/04/2017 after presenting to the ED with complaints of fever, increased weakness, back pain, shortness of breath, and productive cough. Workup in the ED revealed pneumonia. He was previously being followed by Dr. Bland for treatment of recurrent pneumonia. He was admitted to the medical floor. Started on IV antibiotics with a pulmonary and infectious disease consult. He did have a decline in his respiratory status. He was transferred to the ICU. The palliative care met with the siblings. The patient was made a DNR level 1 and placed on comfort measures. Before this, he was requiring 100% oxygenation via his trach collar and his sats were only in the 70s. Again, they elected for comfort measures only. Patient was made a DNR level 1. He was moved to the floor and he on 03/22/2017 at 3:03 a.m. Dictated by SB Graham for Kahlil Chavez MD cc: Kahlil Chavez MD
== END 2017-03-22 03:03 | disposition expired ==
LOC: ED 17:54 → SUATTDRO 03-04 04:26 → 4N 03-04 04:26 → ICU 03-06 21:14 → 3N 03-11 12:54
PROVIDERS: ATTEND Internal Medicine